=== PATIENT | male | born 1960 | race Caucasian/White ===

== ENCOUNTER 2017-10-04 09:15 | Emergency (ER) | payer OTHER ==
[2017-10-04] MEDS ORDERED: NORMAL SALINE 1000 ML 1,000 ML IV ONE (11:21)
[2017-10-04] MEDS ORDERED: MORPHINE SULFATE 10 MG/ML INJ IV ONE (11:21)
--- NOTE | 2017-10-04 11:21 | ER Document Report ---
ED Medical Screen (RME) - General Chief Complaint: Chest Pain Stated Complaint: CHEST PAIN Time Seen by Provider: 10/04/17 11:20 Notes: Patient has multiple medical problems including abdominal surgeries for hernia, hypertension, diabetes. Presents with left-sided chest pain he goes to his back. He also states he has an increased cough. TRAVEL OUTSIDE OF THE [place] IN LAST 30 DAYS: No - Related Data Allergies/Adverse Reactions: No Known Allergies Allergy (Verified 10/04/17 11:01) Past Medical History - Social History Frequency of alcohol use: None Drug Abuse: None - Past Medical History Cardiac Medical History: Reports: Hx Hypertension Endocrine Medical History: Reports: Hx Diabetes Mellitus Type 2 Renal/ Medical History: Denies: Hx Peritoneal Dialysis. Comment Only: Hx End Stage Renal Disease - CKD GI Medical History: Reports: Hx Hiatal Hernia, Hx Ulcer - diabetic Past Surgical History: Reports: Hx Orthopedic Surgery - right toe Physical Exam - Vital signs Vitals: Temp Pulse Resp BP Pulse Ox 97.8 F 98 17 133/61 H 100 10/04/17 09:30 10/04/17 09:30 10/04/17 09:30 10/04/17 09:30 10/04/17 09:30 Course - Vital Signs Vital signs: Temp Pulse Resp BP Pulse Ox 97.8 F 98 17 133/61 H 100 10/04/17 09:30 10/04/17 09:30 10/04/17 09:30 10/04/17 09:30 10/04/17 09:30
[2017-10-04 11:52] LABS: APPEARANCE,URINE CLEAR; BILIRUBIN,URINE NEGATIVE (NEGATIVE); COLOR,URINE YELLOW; GLUCOSE, URINE >=500 mg/dL (NEGATIVE); KETONES,URINE NEGATIVE (NEGATIVE); LEUKOCYTE ESTERASE,URINE NEGATIVE (NEGATIVE); NITRITE,URINE NEGATIVE (NEGATIVE); PROTEIN,URINE NEGATIVE (NEGATIVE); UROBILINOGEN,URINE NEGATIVE mg/dL (<2.0)
--- NOTE | 2017-10-04 12:12 | RADIOLOGY REPORT (SQ) ---
EXAM DESCRIPTION: CHEST PA/LAT COMPLETED DATE/TIME: 10/04/2017 12:02 pm REASON FOR STUDY: pain COMPARISON: None. EXAM PARAMETERS: NUMBER OF VIEWS: two views TECHNIQUE: Digital Frontal and Lateral radiographic views of the chest acquired. RADIATION DOSE: NA LIMITATIONS: none FINDINGS: LUNGS AND PLEURA: No opacities, masses or pneumothorax. No pleural effusion. MEDIASTINUM AND HILAR STRUCTURES: No masses or contour abnormalities. HEART AND VASCULAR STRUCTURES: Heart normal size. No evidence for failure. BONES: No acute findings. HARDWARE: None in the chest. OTHER: No other significant finding. IMPRESSION: NO SIGNIFICANT RADIOGRAPHIC FINDING IN THE CHEST. TECHNICAL DOCUMENTATION: JOB ID: [id number] [employer]- All Rights Reserved
[2017-10-04 12:51] LABS: ABSOLUTE EOSINOPHILS # (AUTO) 0.1 10^3/uL (0.0-0.6); ABSOLUTE LYMPHOCYTES (AUTO) 1.6 10^3/uL (0.5-4.7); ABSOLUTE MONOCYTES (AUTO) 0.5 10^3/uL (0.1-1.4); ABSOLUTE NEUT (AUTO) 4.6 10^3/uL (1.7-8.2); BASOPHILS % (AUTO) 0.3 % (0-2); EOSINOPHILS % (AUTO) 0.9 % (0-6); HEMATOCRIT 37.3 % (37.9-51.0); HEMOGLOBIN 12.6 g/dL (13.5-17.0); LYMPHOCYTES % (AUTO) 23.5 % (13-45); MEAN CORPUSCULAR HEMOGLOBIN 28.7 pg (27.0-33.4); MEAN CORPUSCULAR HGB CONC 33.9 g/dL (32.0-36.0); MEAN CORPUSCULAR VOLUME 85 fl (80-97); MONOCYTES % (AUTO) 6.9 % (3-13); PLATELET COUNT 200 10^3/uL (150-450); RED CELL DISTRIBUTION WIDTH 13.6 % (11.5-14.0); SEGMENTED NEUTROPHILS % (AUTO) 68.4 % (42-78); TOTAL CELLS COUNTED % (AUTO) 100 %; WHITE BLOOD COUNT 6.7 10^3/uL (4.0-10.5)
[2017-10-04 13:14] LABS: ALANINE AMINOTRANSFERASE 34 U/L (21-72); ALBUMIN 4.7 g/dL (3.5-5.0); ALKALINE PHOSPHATASE 76 U/L (38-126); ANION GAP 11 (5-19); ASPARTATE AMINO TRANSFERASE 17 U/L (17-59); BILIRUBIN,DIRECT 0.3 mg/dL (0.0-0.4); BILIRUBIN,TOTAL 0.5 mg/dL (0.2-1.3); BLOOD UREA NITROGEN 25 mg/dL (7-20); CALCIUM 10.3 mg/dL (8.4-10.2); CARBON DIOXIDE 26 mmol/L (22-30); CHLORIDE 101 mmol/L (98-107); GLUCOSE 255 mg/dL (75-110); POTASSIUM 4.9 mmol/L (3.6-5.0); SODIUM 137.7 mmol/L (137-145); TOTAL PROTEIN 7.8 g/dL (6.3-8.2)
--- NOTE | 2017-10-04 14:16 | ER Document Report ---
ED General - General Mode of Arrival: Ambulatory Information source: Patient TRAVEL OUTSIDE OF THE [place] IN LAST 30 DAYS: No <CHARLES MENDOZA - Last Filed: 10/10/17 20:37> <KIESHA ZAMORA - Last Filed: 10/10/17 20:47> - General Chief Complaint: Chest Pain Stated Complaint: CHEST PAIN Time Seen by Provider: 10/04/17 11:20 Notes: Patient is a 57 year old male with a history of hypertension and diabetes presents to the emergency department complaining of left sided chest pain and a non-productive cough onset 2 weeks ago. Patient describes the pain as burning on the left side of his chest that goes into his back. Patient states that he has taken a copious amount of [place] in attempt to soothe is cough but it did not help . (CHARLES MENDOZA) - Related Data Allergies/Adverse Reactions: No Known Allergies Allergy (Verified 10/04/17 11:01) Past Medical History - General Information source: Patient - Social History Smoking Status: Current Every Day Smoker Frequency of alcohol use: None Drug Abuse: None Family History: Reviewed & Not Pertinent Patient has suicidal ideation: No Patient has homicidal ideation: No - Past Medical History Cardiac Medical History: Reports: Hx Hypertension Endocrine Medical History: Reports: Hx Diabetes Mellitus Type 2 Renal/ Medical History: Comment Only: Hx End Stage Renal Disease - CKD GI Medical History: Reports: Hx Hiatal Hernia, Hx Ulcer - diabetic Past Surgical History: Reports: Hx Orthopedic Surgery - right toe <CHARLES MENDOZA - Last Filed: 10/10/17 20:37> Review of Systems - Review of Systems Constitutional: No symptoms reported EENT: No symptoms reported Cardiovascular: See HPI, Chest pain Respiratory: See HPI, Cough Gastrointestinal: No symptoms reported Genitourinary: No symptoms reported Male Genitourinary: No symptoms reported Musculoskeletal: No symptoms reported Skin: No symptoms reported Hematologic/Lymphatic: No symptoms reported Neurological/Psychological: No symptoms reported -: Yes All other systems reviewed and negative <CHARLES MENDOZA - Last Filed: 10/10/17 20:37> Physical Exam <CHARLES MENDOZA - Last Filed: 10/10/17 20:37> <KIESHA ZAMORA - Last Filed: 10/10/17 20:47> - Vital signs Vitals: Temp Pulse Resp BP Pulse Ox 97.8 F 98 17 133/61 H 100 10/04/17 09:30 10/04/17 09:30 10/04/17 09:30 10/04/17 09:30 10/04/17 09:30 - Notes Notes: GENERAL: Alert, interacts well. No acute distress. HEAD: Normocephalic, atraumatic. EYES: Pupils equal, round, and reactive to light. Extraocular movements intact. ENT: Oral mucosa moist, tongue midline. NECK: Full range of motion. Supple. Trachea midline. LUNGS: Reproducible pain on the left side of chest. Clear to auscultation bilaterally, no wheezes, rales, or rhonchi. No respiratory distress. HEART: Regular rate and rhythm. No murmurs, gallops, or rubs. ABDOMEN: Soft, non-tender. Non-distended. Bowel sounds present in all 4 quadrants. EXTREMITIES: Moves all 4 extremities spontaneously. NEUROLOGICAL: Alert and oriented x3. Normal speech. PSYCH: Normal affect, normal mood. SKIN: Warm, dry, normal turgor. No rashes or lesions noted. (CHARLES MENDOZA) Course - Laboratory Result Diagrams: 10/04/17 12:35 10/04/17 12:35 - Diagnostic Test Radiology reviewed: Image reviewed - mild peribronchial cuffing - EKG Interpretation by Ia EKG shows normal: Sinus rhythm Rate: Normal Rhythm: NSR <CHARLES MENDOZA - Last Filed: 10/10/17 20:37> - Laboratory Result Diagrams: 10/04/17 12:35 10/04/17 12:35 <KIESHA ZAMORA - Last Filed: 10/10/17 20:47> - Re-evaluation Re-evalutation: 10/04/17 15:02 Patient well-appearing with labs within normal limits are nonsignificant with chest x-ray showing mild peribronchial cuffing with normal troponin and no concerning findings on EKG. Patient has had cough is nonproductive and tickling in throat for over 2 weeks. Will treat patient for bronchitis with 5 day steroid pack cough syrup. Patient is diabetic advised to monitor his blood sugars during this time. Advised to follow[facility] with [facility] if symptoms do not improving within the next 3-4 days. Of note, patient's chest pain is reproducible with palpation as well as coughing and has been going on for over 2 weeks with normal troponins do not feel any further workup is necessary at this time regarding cardiology workup Did express if symptoms change or worsen that he needs follow-up. (KIESHA ZAMORA) - Vital Signs Vital signs: Temp Pulse Resp BP Pulse Ox 97.4 F 98 13 135/78 H 96 10/04/17 15:20 10/04/17 09:30 10/04/17 15:10 10/04/17 15:10 10/04/17 15:10 - Laboratory Laboratory results interpreted by me: 10/04/17 10/04/17 10/04/17 11:30 12:35 12:35 Hgb 12.6 L Hct 37.3 L BUN 25 H Creatinine 1.54 H Est GFR ( Amer) 57 L Est GFR (Non-Af Amer) 47 L Glucose 255 H Calcium 10.3 H Urine Glucose (UA) >=500 H Discharge <CHARLES MENDOZA - Last Filed: 10/10/17 20:37> <KIESHA ZAMORA - Last Filed: 10/10/17 20:47> - Discharge Clinical Impression: Bronchitis Condition: Good Disposition: HOME, SELF-CARE Additional Instructions: Please follow-up with your [facility] primary care physician in the next 3-4 days if symptoms are not improving for reevaluation Prescriptions: Guaifenesin/Dextromethorphan [Cough Syrup] 118 ml PO QHS #1 bottle Prednisone [Deltasone 20 mg Tablet] 2 tab PO DAILY 5 Days #10 tablet Scribe Attestation: 10/10/17 20:47 I personally performed the services described documentation, reviewed and edited the documentation which was dictated to describe my presence, and it accurately records my words and actions. (KIESHA ZAMORA) Scribe Documentation - Scribe Written by Bhavana:: Bhavana Beebe, 10/04/2017 14:57 acting as scribe for :: Maco <CHARLES MENDOZA - Last Filed: 10/10/17 20:37>
[2017-10-04 15:12] VITALS: BP 135/78
--- NOTE | 2017-10-05 11:57 | EKG REPORT ---
SEVERITY:- NORMAL ECG - SINUS RHYTHM : Confirmed by: Antonio Rivas 05-Oct-2017 11:56:41
== END 2017-10-04 15:21 | disposition home or self-care (01) ==
LOC: ER 09:15
DX: J40 Bronchitis, not specified as acute or chronic (principal); R07.9 Chest pain, unspecified; R05 Cough; I10 Essential (primary) hypertension; E11.9 Type 2 diabetes mellitus without complications
CPT/HCPCS: 93005; 99285; 96361; 96374; 36415; 85025; 80053; 81001; 84484; 71046; 93010; J2270; J7030

== ENCOUNTER 2018-03-20 06:48 | Emergency (ER) | payer OTHER ==
--- NOTE | 2018-03-20 06:51 | ER Document Report ---
ED General - General Stated Complaint: POSSIBLE STROKE Time Seen by Provider: 03/20/18 06:49 Mode of Arrival: Medic Information source: Patient, Emergency Med Personnel Cannot obtain history due to: Other - Patient is aphasic Notes: 58-year-old male unclear medical history due to aphasia presents by EMS emergency traffic, patient is unable to explain his symptoms to me by EMS notes that he has had right arm paresthesia and weakness difficulty with speech. Patient when asked if he knows where he is nods yes when asked if he can name the place just points around the rooms he was able to say a few words to me but were incoherent TRAVEL OUTSIDE OF THE [place] IN LAST 30 DAYS: No - HPI Onset: Other - Unclear time of onset Onset/Duration: Sudden Quality of pain: No pain Severity: Severe Pain Level: Denies Associated symptoms: Other - Aphasia Exacerbated by: Denies Relieved by: Denies Similar symptoms previously: No - Unclear Recently seen / treated by doctor: No - Related Data Allergies/Adverse Reactions: No Known Allergies Allergy (Verified 10/04/17 11:01) Past Medical History - Social History Smoking Status: Current Every Day Smoker Cigarette use (# per day): Yes Chew tobacco use (# tins/day): No Smoking Education Provided: No Family History: Reviewed & Not Pertinent - Past Medical History Cardiac Medical History: Reports: Hx Hypertension Endocrine Medical History: Reports: Hx Diabetes Mellitus Type 2 Renal/ Medical History: Denies: Hx Peritoneal Dialysis. Comment Only: Hx End Stage Renal Disease - CKD GI Medical History: Reports: Hx Hiatal Hernia, Hx Ulcer - diabetic Past Surgical History: Reports: Hx Orthopedic Surgery - right toe Review of Systems - Review of Systems Notes: REVIEW OF SYSTEMS: Difficult to ascertain due to the inability to speak CONSTITUTIONAL : Denies fever, chills, or sweats. Denies recent illness. EENT: Denies eye, ear, throat, or mouth pain or symptoms. Denies nasal or sinus congestion or discharge. Denies throat, tongue, or mouth swelling or difficulty swallowing. CARDIOVASCULAR: Denies chest pain. Denies palpitations or racing or irregular heart beat. Denies ankle edema. RESPIRATORY: Denies cough, cold, or chest congestion. Denies shortness of breath, difficulty breathing, or wheezing. GASTROINTESTINAL: Denies abdominal pain or distention. Denies nausea, vomiting , or diarrhea. Denies blood in vomitus, stools, or per rectum. Denies black, tarry stools. Denies constipation. GENITOURINARY: Denies difficulty urinating, painful urination, burning, frequency, blood in urine, or discharge. MUSCULOSKELETAL: Denies back or neck pain or stiffness. Denies joint pain or swelling. SKIN: Denies rash, lesions or sores. HEMATOLOGIC : Denies easy bruising or bleeding. LYMPHATIC: Denies swollen, enlarged glands. NEUROLOGICAL: Admits difficulty with speech weakness PSYCHIATRIC: Denies anxiety or stress. Denies depression, suicidal ideation, or homicidal ideation. ALL OTHER SYSTEMS REVIEWED AND NEGATIVE. Dictation was performed using [employer] voice recognition software PHYSICAL EXAMINATION: GENERAL: Well-appearing, well-nourished and in no acute distress. Smells of cigarettes HEAD: Atraumatic, normocephalic. EYES: Pupils equal round and reactive to light, extraocular movements intact, sclera anicteric, conjunctiva are normal. ENT: Nares patent, oropharynx clear without exudates. Moist mucous membranes. NECK: Normal range of motion, supple without lymphadenopathy LUNGS: Breath sounds clear to auscultation bilaterally and equal. No wheezes rales or rhonchi. HEART: Regular rate and rhythm without murmurs ABDOMEN: Soft, nontender, nondistended abdomen. No guarding, no rebound. No masses appreciated. Musculoskeletal: Normal range of motion, no pitting or edema. No cyanosis. NEUROLOGICAL: Please see NIH PSYCH: Normal mood, normal affect. SKIN: Warm, Dry, normal turgor, no rashes or lesions noted. Physical Exam - Vital signs Vitals: Pulse Ox 100 03/20/18 07:00 Course - Re-evaluation Re-evalutation: 03/20/18 06:50 I met the patient in the ambulance bay, he is having aphasia it is unclear last known well, EMS states that he awoke a friend approximately 45 minutes ago stating that he was having trouble. Patient may be a candidate for thrombolytics depending on risk factors and time of onset which unfortunately is very difficult to ascertain, there is high risk of giving thrombolytics if the time of onset was last night 03/20/18 06:55 03/20/18 07:32 I was notified by radiologist that there is a large MCA infarct however there is the possibility of a subarachnoid bleed as well radiologist having difficulty viewing the images 03/20/18 07:51 Radiology was able to clear up image and resending it 03/20/18 07:58 Second radiologist is now stating that the image has no acute abnormalities no bleeds no ischemic stroke I asked him specifically about the MCA and he states it is normal 03/20/18 08:04 I walked over to the radiologist Dr. Everett for a third opinion, she agrees that there is a subacute infarct which would not be appropriate for thrombolytics given the time of onset 03/20/18 08:06 [facility] paged for assistance 03/20/18 08:13 Dr Turner agrees not to tpa due to uncertainty of time of onset 03/20/18 08:15 Dr bauman accepts ed transfer 03/20/18 09:18 Helicopter has been here patient has been watched continuously blood pressure did get elevated and EMS who is aware they will call [facility] for more instructions - Vital Signs Vital signs: Temp Pulse Resp BP Pulse Ox 98.3 F 110 H 22 H 189/107 H 99 03/20/18 08:54 03/20/18 07:16 03/20/18 08:46 03/20/18 08:46 03/20/18 08:46 - Laboratory Result Diagrams: 03/20/18 06:50 03/20/18 06:50 Laboratory results interpreted by me: 03/20/18 03/20/18 03/20/18 06:50 06:50 07:03 RBC 4.28 L Hgb 13.0 L Creatinine 1.47 H Est GFR (Non-Af Amer) 49 L Glucose 184 H POC Glucose 173 H Creatine Kinase 380 H Discharge - Discharge Clinical Impression: CVA (cerebral vascular accident) Qualifiers: CVA mechanism: embolism Precerebral and cerebral artery: middle cerebral artery Laterality of affected vessel: left Qualified Code(s): I63.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
--- NOTE | 2018-03-20 07:02 | ER Document Report ---
ED NIH Stroke Scale - NIH Stroke Scale When completed:: Before Alteplase *: 1. NIH scale should be completed with appropriate accompanying assessment tools. *: 2. The NIH should reflect what the patient is capable of doing and should not be coached by the clinician. 1a. Level of Consciousness: 0=Alert;keenly responsive -: 1=Drowsy -: 2=Obtunded -: 3=Coma/unresponsive or reflex to noxious stimuli. 1a. Responses: 0 1b. Orientation Questions: a. What month is it? -: b. How old are you? -: 0=Answers both questions correctly. -: 1=Answers one question correctly or patient is intubated or has orotracheal trauma. -: 2=Answers neither question correctly. 1b. Responses: 2 1c. Response to commands: a. Open and close eyes? -: b. Automatic Packer Operator and release hand? -: Credit is given despite weakness. Demonstration of task is permitted. Substitute command if hands cannot be used. -: 0=Performs both tasks correctly -: 1=Performs one task correctly -: 2=Performs neither task correctly 1c. Responses: 2 2. Gaze: Establish eye contact and instruct patient to "Follow my finger" -: 0=Normal -: 1=Partial gaze palsy. Gaze is abnormal in one or both eyes, but where forced deviation or total gaze paresis is not present. -: 2=Forced deviation or total gaze paresis. 2. Responses: 0 3. Visual Benjamin: Sees fingers in all four quadrants. -: 0=No visual loss. -: 1=Partial hemianopsia. -: 2=Complete hemianopsia. -: 3=Bilateral hemianopsia (including Cortical blindness) 3. Responses: 0 4. Facial Movement: Instruct patient to: -: a. Show me your teeth -: b. Raise your eyebrows -: c. Close your eyes -: d. Smile -: 0=Normal symmetrical movement -: 1=Minor paralysis (flattened nasolabial fold, asymmetry on smiling). -: 2=Partial paralysis (total or near total paralysis of lower face). -: 3=Complete paralysis of upper and lower face 4. Responses: 3 5. Motor functions (left arm): Alternate sides and extend each arm with palms down (90 degrees if sitting or 45 degrees for supine). -: 0=No drift;limb holds for full 10 seconds. -: 1=Drift; limb holds but drifts down before full 10 seconds, but does not hit bed. -: 2=Some effort against gravity; limb cannot get to or maintain position. -: 3=No effort against gravity; limb falls. -: 4=No movement. -: UN=Amputation, joint fusion, explain in comments. 5. Responses (left arm): 1 5. Motor Functions (right arm): Alternate sides and extend each arm with palms down (90 degrees if sitting or 45 degrees for supine). -: 0=No drift;limb holds for full 10 seconds. -: 1=Drift; limb holds but drifts down before full 10 seconds, but does not hit bed. -: 2=Some effort against gravity; limb cannot get to or maintain position. -: 3=No effort against gravity; limb falls. -: 4=No movement. -: UN=Amputation, joint fusion, explain in comments. 5. Responses (right arm): 1 6. Motor Functions (left leg): With patient lying supine, alternate sides and extend each leg (30 degrees always while supine). -: 0=No drift, leg holds position for full 5 seconds -: 1=Drift; leg falls before full 5 seconds but does not hit bed. -: 2=Some effort against gravity, leg falls to bed but some effort against gravity. -: 3=No effort against gravity, leg falls to bed immediately. -: 4=No movement. -: UN=Amputation, joint fusion; explain in comments. 6. Responses (left leg): 0 6. Motor Functions (right leg): With patient lying supine, alternate sides and extend each leg (30 degrees always while supine). -: 0=No drift, leg holds position for full 5 seconds -: 1=Drift; leg falls before full 5 seconds but does not hit bed. -: 2=Some effort against gravity, leg falls to bed but some effort against gravity. -: 3=No effort against gravity, leg falls to bed immediately. -: 4=No movement. -: UN=Amputation, joint fusion; explain in comments. 6. Responses (right leg): 0 7. Limb Ataxia: With eyes open instruct patient to: -: a. "Touch your finger to your nose". -: b. "Touch your heel to your cherry" -: 0=Absent -: 1=Present in one limb. -: 2=Present in two limbs. -: UN=Amputation or joint fusion; explain in comments. 7. Responses: 1 8. Sensory: Test sensation using pinprick or noxious stimuli. Test as many body parts as possible. -: 0=Normal;no sensory loss -: 1=Mile to moderate sensory loss (patient feels pin prick but is less sharp on affected side). -: 2=Severe or total sensory loss. 8. Responses: 1 9. Best Language: Instruct patient to: -: a. "Describe what you see in this picture." -: b. "Name the items in this picture." -: c. "Read these sentences." -: 0=No aphasia, normal -: 1=Mild to moderate aphasia. -: 2=Severe aphasia -: 3=Mute, global aphasia, no usable speech or auditory comprehension. 9. Responses: 3 10. Articulation, Dysarthia: Instruct patient to: -: "Read these words" or "Repeat these words" -: 0=Normal -: 1=Mild to moderate; patient may slur some words but can be understood without difficulty. -: 2=Severe; patients speech so slurred as to be unintelligible in the absence of dysphasia. -: UN=Intubated or other physical barrier, explain in comments. 10. Responses: 0 11. Extinction or inattention: 0=No abnormality -: 1= Visual, tactile, auditory, spatial, or personal inattention or extinction to bilateral simulation in one or the sensory modalities. -: 2=Profound lesly-inattention or lesly-inattention to more than one modality; does not recognize own hand. 11. Responses: 0 Total Score: 14
[2018-03-20 07:22] LABS: ABSOLUTE LYMPHOCYTES (AUTO) 0.9 10^3/uL (0.5-4.7); ABSOLUTE MONOCYTES (AUTO) 0.6 10^3/uL (0.1-1.4); ABSOLUTE NEUT (AUTO) 4.6 10^3/uL (1.7-8.2); BASOPHILS % (AUTO) 0.3 % (0-2); EOSINOPHILS % (AUTO) 0.4 % (0-6); HEMATOCRIT 38.3 % (37.9-51.0); LYMPHOCYTES % (AUTO) 15.2 % (13-45); MEAN CORPUSCULAR HEMOGLOBIN 30.4 pg (27.0-33.4); MEAN CORPUSCULAR VOLUME 90 fl (80-97); MONOCYTES % (AUTO) 9.2 % (3-13); PLATELET COUNT 195 10^3/uL (150-450); RED BLOOD COUNT 4.28 10^6/uL (4.35-5.55); RED CELL DISTRIBUTION WIDTH 13.8 % (11.5-14.0); SEGMENTED NEUTROPHILS % (AUTO) 74.9 % (42-78); TOTAL CELLS COUNTED % (AUTO) 100 %; WHITE BLOOD COUNT 6.1 10^3/uL (4.0-10.5)
[2018-03-20 07:25] LABS: INTERNATIONAL RATION (INR) 0.89; PARTIAL THROMBOPLASTIN TIME 26.1 SEC (23.5-35.8); PROTHROMBIN TIME 12.5 SEC (11.4-15.4)
--- NOTE | 2018-03-20 07:42 | RADIOLOGY REPORT (SQ) ---
EXAM DESCRIPTION: CT HEAD WITHOUT IV CONTRAST COMPLETED DATE/TME: 03/20/2018 00:00 CLINICAL HISTORY: STROKE PROTOCOL COMPARISON: None available TECHNIQUE: Axial CT of the head obtained from the skull apex to the skull base without contrast. FINDINGS: Linear area of hyperdensity in the parietal lobe best seen on image #14, series #2 may represent a small amount of subarachnoid hemorrhage. Wedge-shaped area of hypodensity and loss of an-white matter differentiation. Involving the left parietal lobe compatible with subacute MCA distribution infarction. This hypodensity involves greater than one third the left MCA distribution. No significant mass effect at this time. The ventricular system and sulcal spaces are mildly enlarged compatible with mild cerebral atrophy. Scattered areas of hypodensity throughout the supratentorial white matter are nonspecific and may be related to chronic small vessel ischemic change. The visualized paranasal sinuses and the mastoids are clear. No skull fracture identified. Visualized orbits and globes are unremarkable. Atherosclerotic calcification of the intracranial internal carotid arteries. DLP:1028.70 mGy-cm IMPRESSION: 1. Findings compatible with likely acute/subacute left MCA distribution infarction involving the left parietal lobe. Involvement appears to be greater than one third of the left MCA distribution. 2. There is linear hyperdensity in a sulcal space in the left parietal lobe which could represent acute subarachnoid hemorrhage. Urgent finding reported to Dr. Jones at 03/20/2018 6:40 AM CDT This exam was performed according to our departmental dose-optimization program, which includes automated exposure control, adjustment of the mA and/or kV according to patient size and/or use of iterative reconstruction technique.
[2018-03-20 07:59] LABS: ALANINE AMINOTRANSFERASE 52 U/L (21-72); ALBUMIN 3.9 g/dL (3.5-5.0); ALKALINE PHOSPHATASE 71 U/L (38-126); ANION GAP 14 (5-19); ASPARTATE AMINO TRANSFERASE 26 U/L (17-59); BILIRUBIN,DIRECT 0.3 mg/dL (0.0-0.4); BILIRUBIN,TOTAL 0.3 mg/dL (0.2-1.3); BLOOD UREA NITROGEN 15 mg/dL (7-20); CALCIUM 9.5 mg/dL (8.4-10.2); CARBON DIOXIDE 23 mmol/L (22-30); CHLORIDE 104 mmol/L (98-107); CREATINE KINASE 380 U/L (55-170); GLUCOSE 184 mg/dL (75-110); POTASSIUM 4.4 mmol/L (3.6-5.0); SODIUM 141.3 mmol/L (137-145)
--- NOTE | 2018-03-20 08:02 | RADIOLOGY REPORT (SQ) ---
EXAM DESCRIPTION: XR CHEST 1 VIEW COMPLETED DATE/TME: 03/20/2018 00:00 CLINICAL HISTORY: STROKE PROTOCOL COMPARISON: 10/04/2017 FINDINGS: Single frontal view of the chest. The cardiomediastinal silhouette has normal size and contour. No consolidation, pneumothorax, or pleural effusion. No displaced rib fractures identified. Upper abdominal soft tissues are unremarkable. IMPRESSION: 1. No acute pulmonary process identified.
--- NOTE | 2018-03-20 08:07 | RADIOLOGY REPORT (SQ) ---
EXAM DESCRIPTION: CT HEAD WITHOUT COMPLETED DATE/TIME: 03/20/2018 7:49 am REASON FOR STUDY: STROKE PROTOCOL COMPARISON: None. TECHNIQUE: Axial images acquired through the brain without intravenous contrast. Images reviewed wi th bone, brain and subdural windows. Images stored on PACS. All CT scanners at this facility use dose modulation, iterative reconstruction, and/or weight based d osing when appropriate to reduce radiation dose to as low as reasonably achievable (ALARA). [facility]: Dose Right [facility]: CareDose [facility]: Dose Right [facility]: Teradose 4D [facility]: Cleanify RADIATION DOSE: mGy. LIMITATIONS: None. FINDINGS: VENTRICLES: Normal size and contour. CEREBRUM: No masses. No hemorrhage. No midline shift. No clear-cut areas of infarction. Normal gra y/white matter differentiation. Minimal faint hypodensity noted left parietal region. CEREBELLUM: No masses. No hemorrhage. No alteration of density. No evidence for acute infarction. EXTRAAXIAL SPACES: No fluid collections. No masses. ORBITS AND GLOBE: No intra- or extraconal masses. Normal contour of globe without masses. CALVARIUM: No fracture. PARANASAL SINUSES: No fluid or mucosal thickening. SOFT TISSUES: No mass or hematoma. OTHER: No other significant finding. IMPRESSION: Nothing acute as noted above. No acute hemorrhage. COMMENT: Report called to at the time of study. Quality ID # [id number]: Final reports with documentation of one or more dose reduction techniques (e.g., Au tomated exposure control, adjustment of the mA and/or kV according to patient size, use of iterative reconstruction technique) TECHNICAL DOCUMENTATION: JOB ID: [id number] [employer]- All Rights Reserved Reading location - IP/workstation name: [email or web address]
[2018-03-20 08:10] LABS: CREATINE KINASE MB 1.63 ng/mL (<4.55); TROPONIN I < 0.012 ng/mL
[2018-03-20 08:53] VITALS: BP 189/107
--- NOTE | 2018-03-20 09:59 | EKG REPORT ---
SEVERITY:- OTHERWISE NORMAL ECG - SINUS TACHYCARDIA : Confirmed by: Sallie Murillo MD 20-Mar-2018 09:58:44
== END 2018-03-20 09:03 | disposition short-term general hospital (02) ==
LOC: ER 06:48
DX: I63.411 Cerebral infarction due to embolism of right middle cerebral artery (principal); R47.01 Aphasia; G83.21 Monoplegia of upper limb affecting right dominant side; R20.2 Paresthesia of skin; I10 Essential (primary) hypertension; E11.9 Type 2 diabetes mellitus without complications; F17.210 Nicotine dependence, cigarettes, uncomplicated
CPT/HCPCS: 36415; 70450; 71045; 80053; 82550; 82553; 82962; 84484; 85025; 85610; 85730; 93005; 93010; 99285

== ENCOUNTER 2019-03-19 08:05 | Day surgery (SDC) | payer OTHER ==
[~2019-03-19 08:05] MED LIST: KETOROLAC TROMETHAMINE 0.45% 4 DROP/0.4 ML DROPERETTE OD PRN
[2019-03-19] MEDS ORDERED: ONDANSETRON HCL INJ/PF 4 MG/2 ML SDV ONE (08:25)
[2019-03-19] MEDS ORDERED: FENTANYL CITRATE INJ/PF 100 MCG/2 ML AMPUL ONE (08:26)
[2019-03-19] MEDS ORDERED: MIDAZOLAM 2 MG/2 ML INJ ONE (08:26)
[2019-03-19] MEDS: CYCLOPENTOLATE 0.2%/PHENYLEPHRINE 1% OPH SOLN 2 ML OD PRN ×3 (08:39→09:21)
[2019-03-19] MEDS: TROPICAMIDE 1% OPH SOLN 3 ML OD PRN ×3 (08:39→09:21)
[2019-03-19] MEDS: BESIFLOXACIN HCL 0.6% OPH SUSP 5 ML BOTTLE OD PRN ×4 (08:40→10:01)
[2019-03-19] MEDS: TETRACAINE HCL 0.5% OPH SOLN 0.6 ML DROPERETTE OD PRN ×4 (08:41→09:32)
[2019-03-19] MEDS: LIDOCAINE 4% INJ/PF (40 MG/ML) 5 ML AMPUL OD PRN ×2 (09:35)
[2019-03-19] MEDS: BUPIVACAINE HCL 0.75% INJ/PF (7.5 MG/1 ML) 10 ML SDV OD PRN ×2 (09:35)
[2019-03-19] MEDS: CHONDR SU A NA/HYALUR INTRAOC KIT (SURGICARE) ONE ×2 (09:48)
[2019-03-19] MEDS: LIDOCAINE 1% INJ-PF (10 MG/ML) 30 ML SDV ONE ×2 (09:48)
[2019-03-19] MEDS: EPINEPHRINE INJ/PF 1 MG/1 ML AMPULE ONE ×2 (09:48)
[2019-03-19] MEDS: DORZOLAMIDE HCL 2%/TIMOLOL MALEAT 0.5% OPH SOLN 10 ML OD PRN ×2 (10:01)
--- NOTE | 2019-03-19 10:40 | [facility] OPERATIVE REPORT E ---
[facility] Operative Report NAME: JOSEPHINE MILLS AGE: 59Y DATE OF SURGERY: 03/19/2019 ROOM: PREOPERATIVE DIAGNOSIS: Cataract, right eye. POSTOPERATIVE DIAGNOSIS: Cataract, right eye. PROCEDURE PERFORMED: Phacoemulsification with posterior chamber intraocular lens, right eye. SURGEON: PUMA ROBLERO M.D. ANESTHESIA: Topical with MAC. INDICATIONS FOR SURGERY: Difficulty reading words on TV. PROCEDURE: The patient was brought to the operating room and placed on the operative table. Following tetracaine drops, topical anesthesia was administered. This consisted of instrument wipe pledgets soaked in a solution of 4% Xylocaine mixed with 0.75% Marcaine in a 1:2 ratio. A 2 x 1 cm pledget was placed in the superior fornix. A 1 x 1 cm pledget was placed in the inferior fornix. The eye was patched shut for 5 minutes. The patch was removed. The eye was sterilely prepped and draped in the usual manner. Lid speculum was placed in the eye. The pledgets were removed and 4-0 black silk sutures were placed around the superior and the inferior rectus muscles to be used as traction. A conjunctival peritomy was made at the 10 o'clock position. Hemostasis was obtained with bipolar cautery. A posterior limbal groove was created using a crescent knife and dissected anteriorly towards the cornea. A sharp point blade was used to create a paracentesis site at the 2 o'clock position. A 2.4 mm keratome was used to enter the anterior chamber through the groove. Viscoelastic was injected into the anterior chamber. An anterior capsulotomy was performed using Utrata forceps in a capsulorrhexis fashion. Hydrodissection and hydrodelineation were performed. Phacoemulsification was performed in nexfwh-ylc-efanbmo technique. Total phaco time was 11.47 CDE. Following removal of the cataract, a small anterior capsular tear was noted at the 5 o'clock position. There was no extension of the tear and no evidence of vitreous. The I/A unit was used to remove residual cortex. Viscoelastic was injected into the capsular bag. Intraocular lens model SN60WF, 21.0 diopters, serial number [id number], was placed in the capsular bag. The lens haptics were centered away from the anterior capsular tear. The I/A unit was used to remove residual viscoelastic. The wound was seen to be watertight under high and low pressure, and no sutures were placed. The intraocular lens was well centered. The pressure was adjusted in the eye to normal pressure. The 4-0 black silk sutures and lid speculum were removed. The eye was shielded after Besivance drops were placed. The patient tolerated the procedure well and was sent to the recovery room in good condition. A drop of Cosopt was placed in the eye at the end of the surgery. DICTATING PHYSICIAN: PUMA ROBLERO M.D. [id number] PHY#: [id number] ID: [id number] JOB#: [id number] ACCT: [id number] cc:PUMA ROBLERO M.D. > MTDD
--- NOTE | 2019-03-19 10:40 | [facility] DISCHARGE SUMMARY E ---
[facility] Discharge Summary NAME: JOSEPHINE MILLS AGE: 59Y ADMITTED: 03/19/2019 DISCHARGED: 03/19/2019 FINAL DIAGNOSIS: Cataract, right eye. HOSPITAL COURSE: The patient is a 59-year-old gentleman who underwent uneventful cataract extraction with intraocular lens implant, right eye, on 03/19/2019. He will be discharged to home. He was instructed to resume preoperative medications; to take Tylenol as needed for discomfort; to keep his eye shielded; to use Pred Forte, ketorolac, and Vigamox at 3 p.m. and 8 p.m.; and to follow up in my office in 1 day. DICTATING PHYSICIAN: PUMA ROBLERO M.D. [id number] PHY#: [id number] ID: [id number] JOB#: [id number] ACCT: [id number] cc:PUMA ROBLERO M.D. >
== END 2019-03-19 10:42 | disposition home or self-care (01) ==
LOC: SC 08:05
PROVIDERS: ATTEND Ophthalmology
DX: H25.811 Combined forms of age-related cataract, right eye (principal); Z96.1 Presence of intraocular lens; I10 Essential (primary) hypertension; K21.9 Gastro-esophageal reflux disease without esophagitis; E11.9 Type 2 diabetes mellitus without complications; F17.210 Nicotine dependence, cigarettes, uncomplicated; I69.851 Hemiplegia and hemiparesis following other cerebrovascular disease affecting right dominant side; Z79.4 Long term (current) use of insulin
CPT/HCPCS: 66984; 82962; V2632; J2250; J3490 ×4; J0171; J2405; J3010

== ENCOUNTER → 2019-04-23 | Outpatient (CLI) | payer OTHER, MEDICAID ==
--- NOTE | 2019-04-23 11:47 | RADIOLOGY REPORT (SQ) ---
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 NUMBER OF VIEWS: Three views. TECHNIQUE: AP, lateral and oblique radiographic images acquired of the right foot. LIMITATIONS: None. FINDINGS: MINERALIZATION: Normal. BONES: No acute fracture or dislocation. No worrisome bone lesions. JOINTS: Degenerative changes in the interphalangeal joint of the great toe. Possibly related to prio r infection. SOFT TISSUES: No soft tissue swelling. No foreign body. OTHER: No other significant finding. IMPRESSION: No conventional radiographic of osteomyelitis. Unusual degenerative changes in the 1st interphalangeal joint which may related to old infectious or inflammatory process. TECHNICAL DOCUMENTATION: JOB ID: [id number] [employer]- All Rights Reserved Reading location - IP/workstation name: [email or web address]
== END ==
LOC: RAD 11:08
PROVIDERS: ATTEND Podiatrist Foot & Ankle Surgery
DX: M86.371 Chronic multifocal osteomyelitis, right ankle and foot (principal)

== ENCOUNTER → 2019-05-06 | Outpatient (CLI) | payer MEDICAID ==
[2019-05-06 13:31] LABS: ABSOLUTE EOSINOPHILS # (AUTO) 0.1 10^3/uL (0.0-0.6); ABSOLUTE LYMPHOCYTES (AUTO) 1.4 10^3/uL (0.5-4.7); ABSOLUTE MONOCYTES (AUTO) 0.4 10^3/uL (0.1-1.4); ABSOLUTE NEUT (AUTO) 3.4 10^3/uL (1.7-8.2); BASOPHILS % (AUTO) 0.4 % (0-2); EOSINOPHILS % (AUTO) 1.6 % (0-6); HEMATOCRIT 37.2 % (37.9-51.0); HEMOGLOBIN 12.7 g/dL (13.5-17.0); LYMPHOCYTES % (AUTO) 26.4 % (13-45); MEAN CORPUSCULAR HEMOGLOBIN 28.9 pg (27.0-33.4); MEAN CORPUSCULAR HGB CONC 34.1 g/dL (32.0-36.0); MEAN CORPUSCULAR VOLUME 85 fl (80-97); MONOCYTES % (AUTO) 7.7 % (3-13); PLATELET COUNT 195 10^3/uL (150-450); RED CELL DISTRIBUTION WIDTH 13.9 % (11.5-14.0); SEGMENTED NEUTROPHILS % (AUTO) 63.9 % (42-78); TOTAL CELLS COUNTED % (AUTO) 100 %; WHITE BLOOD COUNT 5.4 10^3/uL (4.0-10.5)
[2019-05-06 13:54] LABS: ALBUMIN 4.2 g/dL (3.5-5.0); ALKALINE PHOSPHATASE 86 U/L (38-126); ANION GAP 9 (5-19); ASPARTATE AMINO TRANSFERASE 19 U/L (17-59); BILIRUBIN,DIRECT 0.3 mg/dL (0.0-0.4); BILIRUBIN,TOTAL 0.5 mg/dL (0.2-1.3); BLOOD UREA NITROGEN 27 mg/dL (7-20); CALCIUM 9.6 mg/dL (8.4-10.2); CARBON DIOXIDE 29 mmol/L (22-30); CHLORIDE 99 mmol/L (98-107); CHOLESTEROL 172.66 mg/dL (0-200); GLUCOSE 242 mg/dL (75-110); POTASSIUM 4.4 mmol/L (3.6-5.0); TOTAL PROTEIN 7.1 g/dL (6.3-8.2); TRIGLYCERIDES 176 mg/dL (<150)
[2019-05-06 14:05] LABS: DIRECT LDL 109 mg/dL (<100)
[2019-05-06 14:10] LABS: VLDL CHOLESTEROL 35.2 mg/dL (10-31)
[2019-05-07 13:37] LABS: CREATININE URINE 267.4 mg/dL (Not Estab.); MICROALBUMIN URINE 35.3 ug/mL (Not Estab.)
== END ==
LOC: OD 13:00
PROVIDERS: ATTEND Family Medicine Geriatric Medicine
DX: E11.21 Type 2 diabetes mellitus with diabetic nephropathy (principal); I10 Essential (primary) hypertension; E55.9 Vitamin D deficiency, unspecified; Z79.899 Other long term (current) drug therapy
CPT/HCPCS: 80053; 80061; 82043; 82306; 82570; 83036; 84443; 85025

== ENCOUNTER → 2019-05-29 | Outpatient (CLI) | payer MEDICAID ==
[2019-05-29 14:34] LABS: ABSOLUTE EOSINOPHILS # (AUTO) 0.1 10^3/uL (0.0-0.6); ABSOLUTE LYMPHOCYTES (AUTO) 1.2 10^3/uL (0.5-4.7); ABSOLUTE MONOCYTES (AUTO) 0.4 10^3/uL (0.1-1.4); ABSOLUTE NEUT (AUTO) 3.7 10^3/uL (1.7-8.2); BASOPHILS % (AUTO) 0.6 % (0-2); EOSINOPHILS % (AUTO) 1.6 % (0-6); HEMATOCRIT 37.1 % (37.9-51.0); HEMOGLOBIN 12.8 g/dL (13.5-17.0); LYMPHOCYTES % (AUTO) 22.1 % (13-45); MEAN CORPUSCULAR HEMOGLOBIN 29.2 pg (27.0-33.4); MEAN CORPUSCULAR HGB CONC 34.5 g/dL (32.0-36.0); MEAN CORPUSCULAR VOLUME 85 fl (80-97); MONOCYTES % (AUTO) 8.1 % (3-13); PLATELET COUNT 165 10^3/uL (150-450); RED BLOOD COUNT 4.38 10^6/uL (4.35-5.55); RED CELL DISTRIBUTION WIDTH 13.9 % (11.5-14.0); SEGMENTED NEUTROPHILS % (AUTO) 67.6 % (42-78); TOTAL CELLS COUNTED % (AUTO) 100 %; WHITE BLOOD COUNT 5.4 10^3/uL (4.0-10.5)
[2019-05-29 14:56] LABS: CHOLESTEROL 155.21 mg/dL (0-200); IRON(TIBC) 58.6 ug/dL (49-181); TRIGLYCERIDES 191 mg/dL (<150)
[2019-05-29 15:07] LABS: DIRECT LDL 84 mg/dL (<100)
[2019-05-29 15:36] LABS: VLDL CHOLESTEROL 38.2 mg/dL (10-31)
== END ==
LOC: LAB 13:52
PROVIDERS: ATTEND Family Medicine Geriatric Medicine
DX: D64.9 Anemia, unspecified (principal); E78.5 Hyperlipidemia, unspecified; Z79.899 Other long term (current) drug therapy
CPT/HCPCS: 36415; 80061; 82272; 82728; 83540; 83550; 84460; 84466; 85025

== ENCOUNTER → 2019-06-18 | Outpatient (CLI) | payer MEDICAID ==
--- NOTE | 2019-06-18 15:00 | NEURO WORKBENCH EEG REPORT ---
EEG Report Patient: Davonte Tillman ID: [id number] Referring Doctor: John De Jesus MD DOS: 06/18/2019 Medications: Unknown History This is a 59 year old right handed man with a history of hemiplegia following stroke in March,, dysarthria, hypertension, diabetes, pacemaker. This EEG was requested for disorientation. EEG Interpretation This EEG was recorded in the awake, drowsy, and sleep states. The awake EEG is characterized by a well-organized background with a well-developed and reactive posterior dominant rhythm of 8.5-9Hz. The remainder of the background consisted of a mix of mainly alpha and appeared symmetric. Mu was noted on the right. There were theta waves in the right temporal region consistent with rhythmic midtemporal discharges (a benign finding). Drowsiness is characterized by slowing of the background rhythms. Vertex waves and sleep spindles were seen in the midline head regions, slightly more prominent on the right side. Photic stimulation resulted in a fairly good driving response, without significant asymmetry. There were no epileptiform abnormalities. The EKG showed periods of an irregular rhythm. EEG Classification Subtle asymmetry, sleep architecture on right EKG - arrythmia EEG Impression This EEG is mildly abnormal with subtle asymmetry suggesting structural lesion on left. Clinical and neuroimaging correlation is required. The EKG shows an intermittent arrhythmia. INTERPRETING NEUROLOGIST: Soledad Mitchell MD, [facility] Board Certified in Neurology, with special qualification in Child Neurology, and in Clinical Neurophysiology [facility]
== END ==
LOC: NEURO 07:37
PROVIDERS: ATTEND Pediatrics
DX: I69.351 Hemiplegia and hemiparesis following cerebral infarction affecting right dominant side (principal); R41.0 Disorientation, unspecified; R47.1 Dysarthria and anarthria; R26.89 Other abnormalities of gait and mobility
CPT/HCPCS: 95819

== ENCOUNTER → 2020-01-07 | Outpatient (CLI) | payer MEDICAID ==
[2020-01-07 11:44] LABS: ABSOLUTE EOSINOPHILS # (AUTO) 0.1 10^3/uL (0.0-0.6); ABSOLUTE LYMPHOCYTES (AUTO) 1.3 10^3/uL (0.5-4.7); ABSOLUTE MONOCYTES (AUTO) 0.5 10^3/uL (0.1-1.4); ABSOLUTE NEUT (AUTO) 4.7 10^3/uL (1.7-8.2); BASOPHILS % (AUTO) 0.2 % (0-2); HEMATOCRIT 37.8 % (37.9-51.0); HEMOGLOBIN 13.3 g/dL (13.5-17.0); LYMPHOCYTES % (AUTO) 19.6 % (13-45); MEAN CORPUSCULAR HEMOGLOBIN 29.5 pg (27.0-33.4); MEAN CORPUSCULAR HGB CONC 35.3 g/dL (32.0-36.0); MEAN CORPUSCULAR VOLUME 84 fl (80-97); MONOCYTES % (AUTO) 7.7 % (3-13); PLATELET COUNT 193 10^3/uL (150-450); RED BLOOD COUNT 4.52 10^6/uL (4.35-5.55); RED CELL DISTRIBUTION WIDTH 12.8 % (11.5-14.0); SEGMENTED NEUTROPHILS % (AUTO) 71.5 % (42-78); TOTAL CELLS COUNTED % (AUTO) 100 %; WHITE BLOOD COUNT 6.6 10^3/uL (4.0-10.5)
[2020-01-07 12:01] LABS: ALBUMIN 4.3 g/dL (3.5-5.0); ALKALINE PHOSPHATASE 84 U/L (38-126); ANION GAP 9 (5-19); ASPARTATE AMINO TRANSFERASE 24 U/L (17-59); BILIRUBIN,DIRECT 0.1 mg/dL (0.0-0.4); BILIRUBIN,TOTAL 0.7 mg/dL (0.2-1.3); BLOOD UREA NITROGEN 27 mg/dL (7-20); CALCIUM 9.4 mg/dL (8.4-10.2); CARBON DIOXIDE 27 mmol/L (22-30); CHLORIDE 100 mmol/L (98-107); CHOLESTEROL 155.63 mg/dL (0-200); GLUCOSE 92 mg/dL (75-110); POTASSIUM 4.8 mmol/L (3.6-5.0); TOTAL PROTEIN 7.5 g/dL (6.3-8.2); TRIGLYCERIDES 102 mg/dL (<150)
[2020-01-07 12:12] LABS: DIRECT LDL 92 mg/dL (<100)
[2020-01-08 07:38] LABS: CREATININE URINE 144.3 mg/dL (Not Estab.); MICROALBUMIN URINE 18.9 ug/mL (Not Estab.)
== END ==
LOC: OD 10:53
PROVIDERS: ATTEND Family Medicine Geriatric Medicine
DX: E11.21 Type 2 diabetes mellitus with diabetic nephropathy (principal); I10 Essential (primary) hypertension; Z79.899 Other long term (current) drug therapy
CPT/HCPCS: 36415; 80053; 80061; 82043; 82570; 83036; 85025

== ENCOUNTER → 2020-02-20 | Outpatient (CLI) | payer MEDICAID ==
[2020-02-20 09:34] LABS: HEMATOCRIT 39.1 % (37.9-51.0); HEMOGLOBIN 13.2 g/dL (13.5-17.0); MEAN CORPUSCULAR HEMOGLOBIN 28.7 pg (27.0-33.4); MEAN CORPUSCULAR HGB CONC 33.8 g/dL (32.0-36.0); MEAN CORPUSCULAR VOLUME 85 fl (80-97); PLATELET COUNT 237 10^3/uL (150-450); RED CELL DISTRIBUTION WIDTH 13.3 % (11.5-14.0); WHITE BLOOD COUNT 7.8 10^3/uL (4.0-10.5)
[2020-02-20 09:51] LABS: ALBUMIN 4.5 g/dL (3.5-5.0); ALKALINE PHOSPHATASE 99 U/L (38-126); ANION GAP 10 (5-19); ASPARTATE AMINO TRANSFERASE 38 U/L (17-59); BILIRUBIN,TOTAL 0.5 mg/dL (0.2-1.3); BLOOD UREA NITROGEN 20 mg/dL (7-20); CALCIUM 9.6 mg/dL (8.4-10.2); CARBON DIOXIDE 28 mmol/L (22-30); CHLORIDE 100 mmol/L (98-107); CHOLESTEROL 145.16 mg/dL (0-200); GLUCOSE 103 mg/dL (75-110); TOTAL PROTEIN 7.5 g/dL (6.3-8.2); TRIGLYCERIDES 135 mg/dL (<150)
[2020-02-20 10:03] LABS: DIRECT LDL 74 mg/dL (<100)
[2020-02-21 11:37] LABS: CREATININE URINE 102.1 mg/dL (Not Estab.); MICROALBUMIN URINE 23.3 ug/mL (Not Estab.)
== END ==
LOC: OD 08:28
PROVIDERS: ATTEND Family Medicine Geriatric Medicine
DX: E11.9 Type 2 diabetes mellitus without complications (principal); I10 Essential (primary) hypertension; E78.5 Hyperlipidemia, unspecified; Z79.899 Other long term (current) drug therapy
CPT/HCPCS: 36415; 80053; 80061; 82043; 82570; 83036; 85027

== ENCOUNTER → 2020-04-03 | Outpatient (CLI) | payer MEDICAID | LOC: OD 08:42 | PROVIDERS: ATTEND Family Medicine Geriatric Medicine | DX: E55.9 Vitamin D deficiency, unspecified (principal) | CPT/HCPCS: 36415; 82306 ==

== ENCOUNTER → 2020-06-29 | Outpatient (CLI) | payer MEDICAID ==
--- NOTE | 2020-06-29 15:16 | RADIOLOGY REPORT (SQ) ---
EXAM DESCRIPTION: U/S RETROPERITON (RENAL/AORTA) IMAGES COMPLETED DATE/TIME: 06/29/2020 2:34 pm REASON FOR STUDY: N18.31 CHRONIC KIDNEY DISEASE, STAGE 3A N18.31 CHRONIC KIDNEY DISEASE, STAGE 3A COMPARISON: None. TECHNIQUE: Dynamic and static grayscale images acquired of the kidneys and bladder and recorded on P ACS. Additional selected color Doppler and spectral images recorded. LIMITATIONS: None. FINDINGS: RIGHT KIDNEY: Normal size measuring 9.0 cm. Normal echogenicity. No solid or suspicious ma sses. No hydronephrosis. No calcifications. LEFT KIDNEY: Normal size measuring 9.0 cm. Normal echogenicity. No solid or suspicious masses. No hy dronephrosis. No calcifications. BLADDER: No masses. OTHER FINDINGS: No other significant finding. IMPRESSION: Unremarkable renal ultrasound. No hydronephrosis. TECHNICAL DOCUMENTATION: JOB ID: [id number] 2010 [employer]- All Rights Reserved Reading location - IP/workstation name: [email or web address]
== END ==
LOC: RAD 14:12
PROVIDERS: ATTEND Internal Medicine Nephrology
DX: N18.31 Chronic kidney disease, stage 3a (principal)
CPT/HCPCS: 76770

== ENCOUNTER → 2020-09-22 | Outpatient (CLI) | payer MEDICARE, MEDICAID ==
[2020-09-22 08:50] LABS: ABSOLUTE EOSINOPHILS # (AUTO) 0.1 10^3/uL (0.0-0.6); ABSOLUTE LYMPHOCYTES (AUTO) 1.1 10^3/uL (0.5-4.7); ABSOLUTE MONOCYTES (AUTO) 0.7 10^3/uL (0.1-1.4); ABSOLUTE NEUT (AUTO) 5.3 10^3/uL (1.7-8.2); BASOPHILS % (AUTO) 0.4 % (0-2); EOSINOPHILS % (AUTO) 1.1 % (0-6); HEMATOCRIT 34.6 % (37.9-51.0); HEMOGLOBIN 11.8 g/dL (13.5-17.0); LYMPHOCYTES % (AUTO) 15.8 % (13-45); MEAN CORPUSCULAR HEMOGLOBIN 28.8 pg (27.0-33.4); MEAN CORPUSCULAR HGB CONC 34.1 g/dL (32.0-36.0); MEAN CORPUSCULAR VOLUME 84 fl (80-97); MONOCYTES % (AUTO) 9.2 % (3-13); PLATELET COUNT 196 10^3/uL (150-450); RED BLOOD COUNT 4.11 10^6/uL (4.35-5.55); RED CELL DISTRIBUTION WIDTH 13.7 % (11.5-14.0); SEGMENTED NEUTROPHILS % (AUTO) 73.5 % (42-78); TOTAL CELLS COUNTED % (AUTO) 100 %; WHITE BLOOD COUNT 7.3 10^3/uL (4.0-10.5)
[2020-09-22 09:06] LABS: ALBUMIN 4.1 g/dL (3.5-5.0); ANION GAP 8 (5-19); BLOOD UREA NITROGEN 20 mg/dL (7-20); CALCIUM 9.1 mg/dL (8.4-10.2); CARBON DIOXIDE 27 mmol/L (22-30); CHLORIDE 101 mmol/L (98-107); GLUCOSE 92 mg/dL (75-110); IRON(TIBC) 83.1 ug/dL (49-181); PHOSPHORUS 3.2 mg/dL (2.5-4.5); POTASSIUM 4.5 mmol/L (3.6-5.0)
[2020-09-23 13:37] LABS: CREATININE URINE 152.4 mg/dL (Not Estab.); MICROALBUMIN URINE 26.1 ug/mL (Not Estab.)
== END ==
LOC: OD 08:17
PROVIDERS: ATTEND Internal Medicine Nephrology
DX: D64.9 Anemia, unspecified (principal); N18.31 Chronic kidney disease, stage 3a; R80.9 Proteinuria, unspecified
CPT/HCPCS: 36415; 80069; 82043; 82306; 82570; 82728; 83540; 83550; 83970; 85025

== ENCOUNTER 2020-09-24 15:07 | Inpatient (IN) | payer MEDICARE, MEDICAID ==
--- NOTE | 2020-09-24 16:21 | ER Document Report ---
ED Medical Screen (RME) - General Stated Complaint: RIGHT FOOT/LEG PROBLEMS Time Seen by Provider: 09/24/20 16:11 Primary Care Provider: HIMA GREGORIO MD [Primary Care Provider] - Follow up as needed Mode of Arrival: Ambulatory Information source: Patient Notes: 60-year-old male presenting to the emergency department from the podiatry office with request for evaluation for possible osteomyelitis. Patient has a chronic diabetic foot wound that they believe is getting worse. The patient denies any fever, chills, nausea, vomiting. Ulceration noted to plantar surface of right foot with surrounding erythema. I have greeted and performed a rapid initial assessment of this patient. A comprehensive ED assessment and evaluation of the patient, analysis of test results and completion of the medical decision making process will be conducted by additional ED providers. I have specifically instructed the patient or family members with the patient to immediately return to any nursing staff should anything change in the patient's condition or with their chief complaint. TRAVEL OUTSIDE OF THE [place] IN LAST 30 DAYS: No - Related Data Allergies/Adverse Reactions: No Known Allergies Allergy (Verified 03/08/19 10:57) Past Medical History - Past Medical History Cardiac Medical History: Reports: Hx Hypertension - MEDICATED Denies: Hx Heart Attack Pulmonary Medical History: Denies: Hx Asthma Neurological Medical History: Reports: Hx Cerebrovascular Accident - RIGHT SIDE WEAKNESS/PRN CANE. Denies: Hx Seizures Endocrine Medical History: Reports: Hx Diabetes Mellitus Type 2 Renal/ Medical History: Denies: Hx Peritoneal Dialysis. Comment Only: Hx End Stage Renal Disease - CKD GI Medical History: Denies: Hx Hepatitis, Hx Hiatal Hernia, Hx Ulcer Infectious Medical History: Denies: Hx Hepatitis Past Surgical History: Reports: Hx Orthopedic Surgery - right toe. Denies: Hx Open Heart Surgery, Hx Pacemaker Physical Exam - Vital signs Vitals: Temp Pulse Resp BP Pulse Ox 98.1 F 93 16 171/78 H 99 09/24/20 15:10 09/24/20 15:10 09/24/20 15:10 09/24/20 15:10 09/24/20 15:10 Course - Vital Signs Vital signs: Temp Pulse Resp BP Pulse Ox 98.1 F 93 16 171/78 H 99 09/24/20 15:10 09/24/20 15:10 09/24/20 15:10 09/24/20 15:10 09/24/20 15:10 Doctor's Discharge - Discharge Referrals: HIMA GREGORIO MD [Primary Care Provider] - Follow up as needed
[2020-09-24 17:46] LABS: APPEARANCE,URINE CLEAR; BILIRUBIN,URINE NEGATIVE (NEGATIVE); COLOR,URINE YELLOW; GLUCOSE, URINE NEGATIVE (NEGATIVE); KETONES,URINE NEGATIVE (NEGATIVE); LEUKOCYTE ESTERASE,URINE NEGATIVE (NEGATIVE); NITRITE,URINE NEGATIVE (NEGATIVE); PROTEIN,URINE NEGATIVE (NEGATIVE); URINE SPECIFIC GRAVITY 1.009
[2020-09-24 17:47] LABS: ABSOLUTE BASOPHILS # (AUTO) 0.1 10^3/uL (0.0-0.2); ABSOLUTE EOSINOPHILS # (AUTO) 0.1 10^3/uL (0.0-0.6); ABSOLUTE LYMPHOCYTES (AUTO) 1.5 10^3/uL (0.5-4.7); ABSOLUTE MONOCYTES (AUTO) 0.6 10^3/uL (0.1-1.4); ABSOLUTE NEUT (AUTO) 6.7 10^3/uL (1.7-8.2); BASOPHILS % (AUTO) 0.7 % (0-2); EOSINOPHILS % (AUTO) 0.7 % (0-6); HEMATOCRIT 35.2 % (37.9-51.0); HEMOGLOBIN 12.1 g/dL (13.5-17.0); LYMPHOCYTES % (AUTO) 16.4 % (13-45); MEAN CORPUSCULAR HGB CONC 34.3 g/dL (32.0-36.0); MEAN CORPUSCULAR VOLUME 85 fl (80-97); MONOCYTES % (AUTO) 7.1 % (3-13); PLATELET COUNT 224 10^3/uL (150-450); RED BLOOD COUNT 4.16 10^6/uL (4.35-5.55); RED CELL DISTRIBUTION WIDTH 13.3 % (11.5-14.0); SEGMENTED NEUTROPHILS % (AUTO) 75.1 % (42-78); TOTAL CELLS COUNTED % (AUTO) 100 %; WHITE BLOOD COUNT 8.9 10^3/uL (4.0-10.5)
--- NOTE | 2020-09-24 17:55 | RADIOLOGY REPORT (SQ) ---
EXAM DESCRIPTION: FOOT RIGHT COMPLETE IMAGES COMPLETED DATE/TIME: 09/24/2020 5:14 pm REASON FOR STUDY: eval for osteomyelitis COMPARISON: None. NUMBER OF VIEWS: Three views. TECHNIQUE: AP, lateral and oblique radiographic images acquired of the right foot. LIMITATIONS: None. FINDINGS: MINERALIZATION: Normal. BONES: No acute fracture or dislocation. No worrisome bone lesions. Plantar calcaneal spur. JOINTS: There are degenerative joint changes in the 1st interphalangeal joint. Cannot entirely rule out bone destruction at this level. SOFT TISSUES: No soft tissue swelling. No foreign body. OTHER: No other significant finding. IMPRESSION: Calcaneal spur. Degenerative joint changes in the 1st interphalangeal joint. Cannot ru le out osteomyelitis in the head of the 1st proximal phalanx or the base of the 1st distal phalanx. TECHNICAL DOCUMENTATION: JOB ID: [id number] 2010 [employer]- All Rights Reserved Reading location - IP/workstation name: [email or web address]
[2020-09-24 18:06] LABS: ALBUMIN 4.7 g/dL (3.5-5.0); ALKALINE PHOSPHATASE 121 U/L (38-126); ANION GAP 11 (5-19); ASPARTATE AMINO TRANSFERASE 24 U/L (17-59); BILIRUBIN,DIRECT 0.3 mg/dL (0.0-0.4); BILIRUBIN,TOTAL 0.6 mg/dL (0.2-1.3); BLOOD UREA NITROGEN 18 mg/dL (7-20); C-REACTIVE PROTEIN 31.2 mg/L (<10.0); CALCIUM 9.9 mg/dL (8.4-10.2); CARBON DIOXIDE 29 mmol/L (22-30); CHLORIDE 98 mmol/L (98-107); GLUCOSE 134 mg/dL (75-110); POTASSIUM 4.4 mmol/L (3.6-5.0); TOTAL PROTEIN 8.3 g/dL (6.3-8.2)
[2020-09-24 18:41] LABS: ERYTHROCYTE SEDIMENTATION RATE 47 mm/hr (0-20)
[2020-09-24] MEDS ORDERED: VANCOMYCIN HCL INJ 1000 MG VIAL IV ONE (21:13)
[2020-09-24] MEDS ORDERED: CEFTRIAXONE INJ 1000 MG VIAL IV ONE (21:14)
[2020-09-24] MEDS ORDERED: ACETAMINOPHEN 325 MG TABLET PO PRN (22:17)
--- NOTE | 2020-09-24 22:30 | RADIOLOGY REPORT (SQ) ---
EXAM DESCRIPTION: Site: CHEST SINGLE VIEW RP: XR CHEST 1 VIEW CLINICAL HISTORY: 60 years Male; assess aicd/pacemaker?; COMPARISON: 03/20/2018 FINDINGS: Lungs: Lungs are clear, with no focal infiltrate, pneumothorax, or pleural effusion. Mediastinum: Mediastinum is within normal limits for this positioning. Loop recorder is noted. There is no AICD or pacemaker. Bones: Bony structures are unremarkable. IMPRESSION: 1. No acute pulmonary findings.
--- NOTE | 2020-09-24 22:36 | ER Document Report ---
ED General - General Chief Complaint: Foot Pain Stated Complaint: RIGHT FOOT/LEG PROBLEMS Time Seen by Provider: 09/24/20 16:11 Primary Care Provider: HIMA GREGORIO MD [Primary Care Provider] - Follow up as needed Mode of Arrival: Ambulatory Notes: 60-year-old male history of diabetes prior first toe osteomyelitis with surgical resection not recently, stroke on Eliquis sent to ED by his senior design engineering specialist Dr. Lou for right foot diabetic wound infection for IV antibiotics. Patient is similar redness in the sole of his foot recently but unable to give further details. Patient denies pain, fever, vomiting, confusion, recent antibiotics TRAVEL OUTSIDE OF THE [place] IN LAST 30 DAYS: No - Related Data Allergies/Adverse Reactions: No Known Allergies Allergy (Verified 03/08/19 10:57) Past Medical History - General Information source: Patient - Social History Smoking Status: Unknown if Ever Smoked Family History: Reviewed & Not Pertinent - Past Medical History Cardiac Medical History: Reports: Hx Hypertension - MEDICATED Denies: Hx Heart Attack Pulmonary Medical History: Denies: Hx Asthma Neurological Medical History: Reports: Hx Cerebrovascular Accident - RIGHT SIDE WEAKNESS/PRN CANE. Denies: Hx Seizures Endocrine Medical History: Reports: Hx Diabetes Mellitus Type 2 Renal/ Medical History: Denies: Hx Peritoneal Dialysis. Comment Only: Hx End Stage Renal Disease - CKD GI Medical History: Denies: Hx Hepatitis, Hx Hiatal Hernia, Hx Ulcer Infectious Medical History: Denies: Hx Hepatitis Past Surgical History: Reports: Hx Orthopedic Surgery - right toe. Denies: Hx Open Heart Surgery, Hx Pacemaker Review of Systems - Review of Systems Notes: REVIEW OF SYSTEMS: CONSTITUTIONAL : Denies fever, chills, or sweats. EENT: Denies recent cold/sinus symptoms, denies throat pain CARDIOVASCULAR: Denies chest pain, CURT RESPIRATORY: Denies cough, denies shortness of breath. GASTROINTESTINAL: Denies abdominal pain, nausea/vomiting. GENITOURINARY: Denies difficulty urinating, painful urination. MUSCULOSKELETAL: Denies neck pain, back pain. SKIN: + rash or skin lesions. HEMATOLOGIC : Denies easy bruising or bleeding. LYMPHATIC: Denies swollen, enlarged glands. NEUROLOGICAL: Denies headache, denies change in gait. PSYCHIATRIC: Denies anxiety or stress or depression. Physical Exam - Vital signs Vitals: Temp Pulse Resp BP Pulse Ox 98.1 F 93 16 171/78 H 99 09/24/20 15:10 09/24/20 15:10 09/24/20 15:10 09/24/20 15:10 09/24/20 15:10 - Notes Notes: PHYSICAL EXAMINATION: GENERAL: Well-appearing, well-nourished and in no acute distress. HEAD: Atraumatic, normocephalic. EYES: Pupils equal round and appropriate constriction, sclera anicteric, conjunctiva are normal. ENT: nares patent, moist mucous membranes. NECK: Normal range of motion, supple without lymphadenopathy LUNGS: Breath sounds clear to auscultation bilaterally and equal. No wheezes rales or rhonchi. HEART: Regular rate and rhythm without murmurs ABDOMEN: Soft, nontender, no guarding, no masses, no CVAT EXTREMITIES: Normal range of motion, bilateral DP pulses 2+, normal strength and sensation, right first toe surgical incision and shortening of toe, sole of right foot with approximately 3 cm fluctuant with streaking from eschar across mid sole foot with increased warmth, no gross discharge NEUROLOGICAL: Awake, alert, conversing appropriately, moves all extremities spontaneously. PSYCH: Normal mood, normal affect. SKIN: Warm, Dry, normal turgor Course - Re-evaluation Re-evalutation: 09/24/20 22:34 Pt sent by senior design engineering specialist for IV antibiotics, rule out osteomyelitis/abscess. Pa tient with some streaking from an eschar which appears to be the source of infection. Patient with x-ray with possible first toe osteo. Otherwise patient feels well, no systemic symptoms, no other concerning findings on exam. Discussed case with Dr. Hopson who has accepted patient to medicine floor. 09/24/20 22:35 Order chest x-ray to assess whether chest implant is AICD or pacemaker, patient is not sure - Vital Signs Vital signs: Temp Pulse Resp BP Pulse Ox 98.1 F 93 16 171/78 H 99 09/24/20 15:10 09/24/20 15:10 09/24/20 15:10 09/24/20 15:10 09/24/20 15:10 - Laboratory Results Result Diagrams: 09/24/20 17:29 09/24/20 17:29 Laboratory Results Interpreted: 01/14/21 01/14/21 01/14/21 17:05 17:29 17:29 RBC 4.16 L Hgb 12.1 L Hct 35.2 L ESR 47 H Creatinine 1.63 H Est GFR ( Amer) 53 L Est GFR (MDRD) Non-Af 44 L Glucose 134 H C-Reactive Protein 31.2 H Total Protein 8.3 H Urine Urobilinogen 2.0 H Critical Laboratory Results Reviewed: No Critical Results - Radiology Results Critical Radiology Results Reviewed: No Critical Results Discharge - Discharge Clinical Impression: Diabetic foot infection Disposition: ADMITTED INPATIENT Admitting Provider: [facility] Admitted: Medical Floor Referrals: HIMA GREGORIO MD [Primary Care Provider] - Follow up as needed
[2020-09-24] MEDS ORDERED: DEXTROSE 50%-WATER 25 GM/50 ML DISP.SYRIN IV PRN ×2 (22:37)
[2020-09-24] MEDS ORDERED: DEXTROSE 40% GEL 15 GM TUBE PO PRN ×2 (22:37)
[2020-09-24] MEDS ORDERED: GLUCAGON,HUMAN RECOMB 1 MG INJ IM PRN (22:37)
[2020-09-24] MEDS ORDERED: VANCOMYCIN HCL 0 MG in DEXTROSE 5%-WATER 250 ML IV NR (22:45)
--- NOTE | 2020-09-24 22:45 | PDOC H&P ---
History of Present Illness Admission Date/PCP: HIMA GREGORIO MD Patient complains of: Right foot nonhealing wound History of Present Illness: JOSEPHINE MILLS is a 60 year old male with a history of insulin-dependent diabetes mellitus, CKD stage III, history of CVA who now presents with 2 months duration of a nonhealing ulcer on the plantar side of his right foot. Patient was seen by division operations manager Dr. Lou this morning and was sent to the ED for further emanuel luation due to concern for osteomyelitis. Patient also states that he noticed a blister near the ulcer area over the past 2 to 3 days. 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 Patient also denies any fever, chills, nausea, vomiting. Similar wound on the right big toe and was diagnosed with osteomyelitis in 2017 resulting in partial amputation of the right big toe. Past Medical History Cardiac Medical History: Reports: Hypertension - MEDICATED Denies: Myocardial Infarction Pulmonary Medical History: Denies: Asthma Neurological Medical History: Denies: Seizures Endocrine Medical History: Reports: Diabetes Mellitus Type 2 Renal/ Medical History: Comment Only: End Stage Renal Disease - CKD GI Medical History: Denies: Hepatitis, Hiatal Hernia Hematology: Denies: Anemia, Sickle Cell Disease Past Surgical History Past Surgical History: Reports: Orthopedic Surgery - right toe Denies: Pacemaker Social History Information Source: Patient Lives with: Family Smoking Status: Unknown if Ever Smoked Frequency of Alcohol Use: Occasional Hx Recreational Drug Use: No Drugs: None - Advance Directive Resuscitation Status: Full Code Family History Family History: Reviewed & Not Pertinent Parental Family History Reviewed: Yes Children Family History Reviewed: Yes Sibling(s) Family History Reviewed.: Yes Medication/Allergy Home Medications: Aspirin [Blas Chewable Aspirin] 81 mg PO DAILY 02/25/19 Atorvastatin Calcium [Lipitor] 80 mg PO DAILY 02/25/19 Ergocalciferol (Vitamin D2) [Vitamin D2] 2,000 unit PO DAILY 02/25/19 Fluoxetine HCl [Prozac] 20 mg PO DAILY 02/25/19 Gabapentin [Neurontin 300 mg Capsule] 300 mg PO Q12 02/25/19 Insulin Glargine,Hum.rec.anlog [Lantus Insulin 100 Unit/1 ml 10 ml] 35 unit SUBCUT DAILY 02/25/19 Ketorolac Tromethamine 0.45% [Acuvail 0.45% Oph Soln 0.4 ml/Dropperette] 1 drop OD .ASDIR 02/25/19 Lisinopril [Zestril] 10 mg PO DAILY 02/25/19 Moxifloxacin HCl [Vigamox 0.5% Oph Soln 3 ml] 1 drop OP ASDIR 02/25/19 Pantoprazole Sodium 40 mg PO DAILY 02/25/19 Prednisolone Acetate [Pred Forte] 1 drop OP .ASDIR 02/25/19 Tramadol HCl [Ultram] 50 mg PO TID 02/25/19 Allergies/Adverse Reactions: No Known Allergies Allergy (Verified 03/08/19 10:57) Review of Systems Constitutional: ABSENT: chills, fever(s), headache(s), weight gain, weight loss Eyes: ABSENT: visual disturbances Ears: ABSENT: hearing changes Cardiovascular: ABSENT: chest pain, dyspnea on exertion, edema, orthropnea, palpitations Respiratory: ABSENT: cough, hemoptysis Gastrointestinal: ABSENT: abdominal pain, constipation, diarrhea, hematemesis, hematochezia, nausea, vomiting Genitourinary: ABSENT: dysuria, hematuria Musculoskeletal: ABSENT: joint swelling Integumentary: PRESENT: as per HPI Neurological: ABSENT: abnormal gait, abnormal speech, confusion, dizziness, focal weakness, syncope Psychiatric: ABSENT: anxiety, depression, homidical ideation, suicidal ideation Endocrine: ABSENT: cold intolerance, heat intolerance, polydipsia, polyuria Hematologic/Lymphatic: ABSENT: easy bleeding, easy bruising Physical Exam Vital Signs: Temp Pulse Resp BP Pulse Ox 98.1 F 93 16 171/78 H 99 09/24/20 15:10 09/24/20 15:10 09/24/20 15:10 09/24/20 15:10 09/24/20 15:10 Additional comments: GENERAL APPEARANCE: Alert and oriented x3, in no acute distress HEENT: Normocephalic and atraumatic. No scleral icterus. Moist oral mucosa NECK: Supple. No lymphadenopathy or tenderness. No carotid bruit. No JVD CHEST: Symmetric. Nontender to palpation. LUNGS: Clear with good air entry bilaterally. No wheezing or crackles HEART: Regular rate and rhythm with normal S1 and S2. No murmurs, gallops, or rubs. ABDOMEN: soft, active bowel sounds, no direct or rebound tenderness. No organomegaly detected. EXTREMITIES: No cyanosis, clubbing, or edema. There is a 1 x 1 cm ulcerated wound on the sole of his right foot which is located laterally near the 4th and 5th digits. There is about a 2 x 2 centimeter fluctuant swelling proximal to the ulcer. There is also an area of surrounding redness which extends to the medial side of his foot. There is no tenderness or differential warmth MUSCULOSKELETAL: No deformity, atrophy or swelling noted PSYCHIATRIC: Recent and remote memory is intact. Appropriate mood and affect. NEUROLOGIC: No focal sensory or motor deficits are noted. Results Laboratory Results: 09/24/20 17:29 09/24/20 17:29 09/24/20 09/24/20 09/24/20 17:05 17: 17:29 WBC 8.9 RBC 4.16 L Hgb 12.1 L Hct 35.2 L MCV 85 MCH 29.0 MCHC 34.3 RDW 13.3 Plt Count 224 Seg Neutrophils % 75.1 Sodium 137.6 Potassium 4.4 Chloride 98 Carbon Dioxide 29 Anion Gap 11 BUN 18 Creatinine 1.63 H Est GFR ( Amer) 53 L Glucose 134 H Lactic Acid Calcium 9.9 Total Bilirubin 0.6 AST 24 Alkaline Phosphatase 121 C-Reactive Protein 31.2 H Total Protein 8.3 H Albumin 4.7 Urine Color YELLOW Urine Appearance CLEAR Urine pH 6.0 Ur Specific [place] 1.009 Urine Protein NEGATIVE Urine Glucose (UA) NEGATIVE Urine Ketones NEGATIVE Urine Blood NEGATIVE Urine Nitrite NEGATIVE Ur Leukocyte Esterase NEGATIVE Urine WBC (Auto) 0 Urine RBC (Auto) 0 09/24/20 17:29 WBC RBC Hgb Hct MCV MCH MCHC RDW Plt Count Seg Neutrophils % Sodium Potassium Chloride Carbon Dioxide Anion Gap BUN Creatinine Est GFR ( Amer) Glucose Lactic Acid 0.7 Calcium Total Bilirubin AST Alkaline Phosphatase C-Reactive Protein Total Protein Albumin Urine Color Urine Appearance Urine pH Ur Specific [place] Urine Protein Urine Glucose (UA) Urine Ketones Urine Blood Urine Nitrite Ur Leukocyte Esterase Urine WBC (Auto) Urine RBC (Auto) Impressions: Foot X-Ray 09/24/20 16:31 IMPRESSION: Calcaneal spur. Degenerative joint changes in the 1st interphalangeal joint. Cannot rule out osteomyelitis in the head of the 1st proximal phalanx or the base of the 1st distal phalanx. Chest X-Ray 09/24/20 21:53 IMPRESSION: 1. No acute pulmonary findings. Assessment and Plan - Diagnosis (1) Diabetic foot infection Is this a current diagnosis for this admission?: Yes Plan: Patient presents with right lower extremity nonhealing wound There is a 1 x 1 cm foot ulcer and a 2 x 2 centimeter fluctuant possible abscess collection on the plantar surface of right foot Has soft tissue infection with purulent cellulitis X-ray of the foot showed DJD, calcaneal spur and osteomyelitis could not be ruled out ESR 47, CRP 31 Started on Vanco and cefepime Consult with surgery for possible abscess drainage and debridement Ordered MRI of the foot to rule out osteomyelitis (2) Insulin dependent diabetes mellitus Is this a current diagnosis for this admission?: Yes Plan: Patient states that he is currently on Lantus insulin 50 units daily and Metformin We will place him on Accu-Chek, sliding scale insulin, hypoglycemia protocol Continue Lantus insulin 35 units daily (3) Stage 3 chronic kidney disease Is this a current diagnosis for this admission?: Yes Plan: BUN/creatinine appears at baseline Continue monitoring renal indicis Renally dose medications and avoid nephrotoxic (4) History of CVA (cerebrovascular accident) Is this a current diagnosis for this admission?: Yes Plan: Patient reports that he had a CVA in 2018 Currently has no new focal neurologic deficits Continue aspirin and statin for secondary prevention (5) Overweight (BMI 25.0-29.9) Is this a current diagnosis for this admission?: Yes Plan: Encouraged patient to do regular exercise as tolerated and make dietary adjustments to attain optimal weight - Time Time Spent with patient: 35 or more minutes Total Critical Time (Minutes): 45 Medications reviewed and adjusted accordingly: Yes Anticipated Discharge Disposition: Home, Self Care Anticipated Discharge Timeframe: within 72 hours - Inpatient Certification Based on my medical assessment, after consideration of the patient's comorbidities, presenting symptoms, or acuity I expect that the services needed warrant INPATIENT care.: Yes I certify that my determination is in accordance with my understanding of Medicare's requirements for reasonable and necessary INPATIENT services [42 CFR 412.3e].: Yes Medical Necessity: Significant Comorbidiites Make Outpatient Treatment Too Risky, Need Close Monitoring Due to Risk of Patient Decompensation, Need for IV Antibiotics, Risk of Complication if Not Cared For in Hospital Post Hospital Care: D/C or Transfer Summary
[2020-09-24] MEDS ORDERED: GABAPENTIN 300 MG CAPSULE PO ONE (23:15)
[2020-09-24] MEDS ORDERED: CEFEPIME 1 GM/D5W RTU 1 GM/50 ML RTUPB IV ONE (23:15)
[2020-09-25] MEDS ORDERED: CEFEPIME 1 GM/D5W RTU 1 GM/50 ML RTUPB IV ONE (01:58)
[2020-09-25] MEDS ORDERED: GABAPENTIN 300 MG CAPSULE PO ONE (02:15)
[2020-09-25] MEDS ORDERED: PANTOPRAZOLE SODIUM 40 MG TABLET.DR PO SCH (06:00)
[2020-09-25 07:27] LABS: ABSOLUTE EOSINOPHILS # (AUTO) 0.1 10^3/uL (0.0-0.6); ABSOLUTE LYMPHOCYTES (AUTO) 1.1 10^3/uL (0.5-4.7); ABSOLUTE MONOCYTES (AUTO) 0.6 10^3/uL (0.1-1.4); ABSOLUTE NEUT (AUTO) 4.3 10^3/uL (1.7-8.2); BASOPHILS % (AUTO) 0.3 % (0-2); EOSINOPHILS % (AUTO) 1.4 % (0-6); HEMATOCRIT 29.4 % (37.9-51.0); HEMOGLOBIN 10.3 g/dL (13.5-17.0); LYMPHOCYTES % (AUTO) 18.7 % (13-45); MEAN CORPUSCULAR HEMOGLOBIN 29.2 pg (27.0-33.4); MEAN CORPUSCULAR VOLUME 84 fl (80-97); MONOCYTES % (AUTO) 9.3 % (3-13); PLATELET COUNT 185 10^3/uL (150-450); RED BLOOD COUNT 3.51 10^6/uL (4.35-5.55); RED CELL DISTRIBUTION WIDTH 13.3 % (11.5-14.0); SEGMENTED NEUTROPHILS % (AUTO) 70.3 % (42-78); TOTAL CELLS COUNTED % (AUTO) 100 %; WHITE BLOOD COUNT 6.1 10^3/uL (4.0-10.5)
[2020-09-25 07:43] LABS: BLOOD UREA NITROGEN 17 mg/dL (7-20); CALCIUM 8.9 mg/dL (8.4-10.2); CHLORIDE 103 mmol/L (98-107); GLUCOSE 143 mg/dL (75-110); POTASSIUM 4.3 mmol/L (3.6-5.0)
[2020-09-25 07:49] LABS: ANION GAP 5 (5-19); CARBON DIOXIDE 27 mmol/L (22-30)
[2020-09-25] MEDS: INSULIN REG, HUMAN 100 UNIT/ML 3 ML VIAL (PYX) SUBCUT SCH ×3 (08:03→16:52)
[2020-09-25] MEDS ORDERED: LIDOCAINE 2% INJ-PF (20 MG/ML) 2 ML AMPUL ONE (09:48)
[2020-09-25] MEDS ORDERED: LISINOPRIL 10 MG TABLET PO SCH (10:00)
[2020-09-25] MEDS ORDERED: VANCOMYCIN HCL 1,250 MG in DEXTROSE 5%-WATER 250 ML IV SCH (10:00)
[2020-09-25] MEDS ORDERED: GABAPENTIN 300 MG CAPSULE PO SCH (10:00)
[2020-09-25] MEDS ORDERED: INSULIN GLARGINE,HUM.REC.ANLOG 1,000 UNIT/10 ML VIAL SUBCUT SCH (10:00)
[2020-09-25] MEDS ORDERED: CEFEPIME 1 GM/D5W RTU 1 GM/50 ML RTUPB IV SCH (10:00)
[2020-09-25] MEDS ORDERED: FLUOXETINE HCL 20 MG CAPSULE PO SCH (10:00)
[2020-09-25] MEDS ORDERED: ENOXAPARIN SODIUM INJ 40 MG/0.4 ML DISP.SYRIN SUBCUT SCH (10:00)
[2020-09-25] MEDS ORDERED: ASPIRIN 81 MG TABLET, CHEWABLE PO SCH (10:00)
[2020-09-25] MEDS ORDERED: MIDAZOLAM 2 MG/2 ML INJ ONE (10:33)
[2020-09-25] MEDS ORDERED: PROPOFOL INJ 200 MG/20 ML VIAL IV ONE ×2 (10:33→11:15)
[2020-09-25] MEDS ORDERED: BUPIVACAINE HCL 0.25 % INJ/PF (2.5 MG/1 ML) 30 ML VIAL ONE (10:33)
[2020-09-25] MEDS ORDERED: FENTANYL CITRATE INJ/PF 100 MCG/2 ML AMPUL ONE (10:33)
[2020-09-25] MEDS ORDERED: EPHEDRINE SULFATE INJ 50 MG/1 ML AMPULE ONE (10:34)
--- NOTE | 2020-09-25 10:52 | PDOC CONSULTATION ---
Consultation Consult Date: 09/25/20 Provider Consulted: SURGICAL SURGICALIST Consult reason:: diabetic foot, possible infection History of Present Illness Admission Date/PCP: 09/24/20 22:44 HIMA GREGORIO MD Patient complains of: right foot pain History of Present Illness: JOSEPHINE MILLS is a 60 year old diabetic male. He presents with a several day history of pain, swelling, and redness of the right foot. Patient saw his forest pathologist, who examined the blister on the right foot, and prescribed the patient antibiotics. He has been receiving antibiotics for the last several days. He continues to complain of pain in the foot with walking. He reports that he cannot perform his activities of daily living with the blistered area on his foot. The patient denies fevers, chills, nausea, vomiting, abdominal pain. He reports minimal redness around the blister, that has improved with antibiotics. He denies significant pedal edema. He does report chronic neurop athy/numbness. Past Medical History Cardiac Medical History: Reports: Hypertension - MEDICATED Denies: Myocardial Infarction Pulmonary Medical History: Denies: Asthma Neurological Medical History: Denies: Seizures Endocrine Medical History: Reports: Diabetes Mellitus Type 2 Renal/ Medical History: Comment Only: End Stage Renal Disease - CKD GI Medical History: Denies: Hepatitis, Hiatal Hernia Psychiatric Medical History: Denies: Depression Hematology: Denies: Anemia, Sickle Cell Disease Past Surgical History Past Surgical History: Reports: Orthopedic Surgery - right toe Denies: Pacemaker Social History Lives with: Family Smoking Status: Unknown if Ever Smoked Electronic Cigarette use?: No Frequency of Alcohol Use: Occasional Hx Recreational Drug Use: No Drugs: None Hx Prescription Drug Abuse: No - Advance Directive Resuscitation Status: Full Code Family History Family History: Reviewed & Not Pertinent Parental Family History Reviewed: Yes Children Family History Reviewed: Yes Sibling(s) Family History Reviewed.: Yes Medication/Allergy Home Medications: Atorvastatin Calcium [Lipitor] 80 mg PO DAILY 02/25/19 Ergocalciferol (Vitamin D2) [Vitamin D2] 2,000 unit PO DAILY 02/25/19 Fluoxetine HCl [Prozac] 20 mg PO DAILY 02/25/19 Gabapentin [Neurontin 300 mg Capsule] 300 mg PO Q12 02/25/19 Insulin Glargine,Hum.rec.anlog [Lantus Insulin 100 Unit/1 ml 10 ml] 35 unit SUBCUT DAILY 02/25/19 Lisinopril [Zestril] 10 mg PO DAILY 02/25/19 Pantoprazole Sodium 40 mg PO DAILY 02/25/19 Tramadol HCl [Ultram] 50 mg PO TID PRN 02/25/19 Allergies/Adverse Reactions: No Known Allergies Allergy (Verified 03/08/19 10:57) Review of Systems Constitutional: ABSENT: anorexia, chills, fatigue Eyes: ABSENT: visual disturbances Ears: ABSENT: hearing changes Nose, Mouth, and Throat: ABSENT: sore throat Cardiovascular: ABSENT: chest pain Respiratory: ABSENT: cough Gastrointestinal: ABSENT: abdominal pain, bloating Genitourinary: ABSENT: dysuria Musculoskeletal: ABSENT: back pain Neurological: PRESENT: paresthesias. ABSENT: confusion, convulsions, dizziness Psychiatric: ABSENT: anxiety, depression Hematologic/Lymphatic: ABSENT: easy bleeding, easy bruising Physical Exam Vital Signs: Temp Pulse Resp BP Pulse Ox 98.2 F 73 14 108/56 L 98 09/25/20 10:09 09/25/20 10:09 09/25/20 10:09 09/25/20 10:09 09/25/20 10:09 Intake & Output 09/24/20 09/25/20 09/26/20 06:59 06:59 06:59 Intake Total 300 50 Balance 300 50 Weight 99.3 kg General appearance: PRESENT: no acute distress, cooperative Head exam: PRESENT: atraumatic, normocephalic Eye exam: PRESENT: EOMI, PERRLA. ABSENT: scleral icterus Mouth exam: PRESENT: moist, neck supple Neck exam: ABSENT: meningismus, tenderness, thyromegaly Respiratory exam: PRESENT: unlabored. ABSENT: tachypnea, wheezes Cardiovascular exam: ABSENT: tachycardia Vascular exam: PRESENT: normal capillary refill GI/Abdominal exam: PRESENT: soft. ABSENT: distended, tenderness Rectal exam: PRESENT: deferred Extremities exam: PRESENT: other - Blister to the right lateral plantar surface of the foot. Tiny amount of erythema. No obvious purulence. No induration.. ABSENT: clubbing Neurological exam: PRESENT: alert, awake, oriented to person, oriented to place, oriented to time Psychiatric exam: PRESENT: anxious. ABSENT: agitated, depressed Focused psych exam: ABSENT: delusional Skin exam: PRESENT: erythema - Minimal erythema at blister site, see extremity exam. ABSENT: cyanosis, jaundice Results Laboratory Results: 09/25/20 06:00 09/25/20 06:00 09/24/20 09/24/20 09/24/20 17:05 17:29 17:29 WBC 8.9 RBC 4.16 L Hgb 12.1 L Hct 35.2 L MCV 85 MCH 29.0 MCHC 34.3 RDW 13.3 Plt Count 224 Seg Neutrophils % 75.1 Sodium 137.6 Potassium 4.4 Chloride 98 Carbon Dioxide 29 Anion Gap 11 BUN 18 Creatinine 1.63 H Est GFR ( Amer) 53 L Glucose 134 H Lactic Acid Calcium 9.9 Total Bilirubin 0.6 AST 24 Alkaline Phosphatase 121 C-Reactive Protein 31.2 H Total Protein 8.3 H Albumin 4.7 Urine Color YELLOW Urine Appearance CLEAR Urine pH 6.0 Ur Specific [place] 1.009 Urine Protein NEGATIVE Urine Glucose (UA) NEGATIVE Urine Ketones NEGATIVE Urine Blood NEGATIVE Urine Nitrite NEGATIVE Ur Leukocyte Esterase NEGATIVE Urine WBC (Auto) 0 Urine RBC (Auto) 0 09/24/20 09/25/20 09/25/20 17:29 06:00 06:00 WBC 6.1 RBC 3.51 L Hgb 10.3 L Hct 29.4 L MCV 84 MCH 29.2 MCHC 35.0 RDW 13.3 Plt Count 185 Seg Neutrophils % 70.3 Sodium 135.2 L Potassium 4.3 Chloride 103 Carbon Dioxide 27 Anion Gap 5 BUN 17 Creatinine 1.43 H Est GFR ( Amer) > 60 Glucose 143 H Lactic Acid 0.7 Calcium 8.9 Total Bilirubin AST Alkaline Phosphatase C-Reactive Protein Total Protein Albumin Urine Color Urine Appearance Urine pH Ur Specific [place] Urine Protein Urine Glucose (UA) Urine Ketones Urine Blood Urine Nitrite Ur Leukocyte Esterase Urine WBC (Auto) Urine RBC (Auto) Impressions: Foot X-Ray 09/24/20 16:31 IMPRESSION: Calcaneal spur. Degenerative joint changes in the 1st interphalangeal joint. Cannot rule out osteomyelitis in the head of the 1st proximal phalanx or the base of the 1st distal phalanx. Chest X-Ray 09/24/20 21:53 IMPRESSION: 1. No acute pulmonary findings. Assessment & Plan - Diagnosis (1) Foot and toe(s), blister, without mention of infection Is this a current diagnosis for this admission?: Yes - Plan Summary Plan Summary: This is a 60-year-old diabetic male with a blister to the right lateral plantar foot. X-rays were performed showing the "possibility" of osteomyelitis of the first digit of the right foot. This is in no way involved with the blister. In fact, it is on the opposite side of the foot. I have no clinical suspicion for osteomyelitis. I have discussed this with the patient at length. The patient complains of pain in the foot, and erythema. His erythema has improved significantly after antibiotics have been started as an outpatient. At this time, I do not see significant evidence for active infection (however the presence of antibiotics may mask this). I have discussed treatment options with the patient at length. I have offered him nonoperative management with close o bservation versus debridement of the blister. The risks and benefits of both of these approaches were detailed with him. He is insistent upon surgical debridement with exploration to ensure that there is no active infection present. Informed consent was obtained, and all questions were answered. We will proceed with unroofing/debridement of the patient's blister. He will require close follow-up with his forest pathologist to ensure adequate healing of the open wound.
--- NOTE | 2020-09-25 11:50 | Operative Report ---
Nonrecallable Operative Report DATE OF SURGERY: 09/25/20 PREOPERATIVE DIAGNOSIS: Blister to the right lateral plantar foot. POSTOPERATIVE DIAGNOSIS: Infected blister to the right lateral plantar foot. OPERATION: 1. Incision and drainage of blister of the right lateral plantar foot. 2. Debridement of skin of the right plantar foot, measuring 5 x 3 cm. SURGEON: RUI GREER ANESTHESIA: LMAC TISSUE REMOVED OR ALTERED: 1. Skin of the right plantar foot. 2. Wound culture. COMPLICATIONS: None apparent ESTIMATED BLOOD LOSS: Minimal PROCEDURE: Drains/implants: Xeroform gauze. Procedure in detail: After informed consent was obtained, the patient was brought to the operating room and laid in the supine position. The area of the right foot was prepped and draped in a normal sterile fashion. There is a 5 x 3 cm blister apparent on the plantar surface of the foot. The blister was unroofed, removing all of the overlying skin. Within the blister, there was found to be seropurulent fluid. This was sent for wound culture. After the overlying skin was debrided away sharply, the foot was inspected. There was no extension of the blister to the deeper tissues of the foot. The bone was not exposed in this area. At this time I have very low clinical suspicion for osteomyelitis or extensive deep tissue infection. A dressing was then placed, and the procedure was concluded. All sponge, instrument, and needle counts were correct x2. Condition: Stable.
[2020-09-25] MEDS ORDERED: FENTANYL CITRATE INJ/PF 100 MCG/2 ML AMPUL IV PRN ×3 (11:51)
[2020-09-25] MEDS ORDERED: INSULIN GLARGINE,HUM.REC.ANLOG 1,000 UNIT/10 ML VIAL (PYX) SUBCUT ONE (14:00)
[2020-09-25 17:20] VITALS: BP 138/87
--- NOTE | 2020-09-25 20:51 | PDOC DISCHARGE SUMMARY ---
Impression - Admit/DC Date/PCP Admission Date/Primary Care Provider: 09/24/20 22:44 HIMA GREGORIO MD Discharge Date: 09/25/20 - Discharge Diagnosis (1) Foot and toe(s), blister, without mention of infection Is this a current diagnosis for this admission?: Yes (2) Insulin dependent diabetes mellitus Is this a current diagnosis for this admission?: Yes (3) Overweight (BMI 25.0-29.9) Is this a current diagnosis for this admission?: Yes (4) Stage 3 chronic kidney disease Is this a current diagnosis for this admission?: Yes - Assessment Summary: JOSEPHINE MILLS is a 60 year old male with a history of insulin-dependent diabetes mellitus, CKD stage III, history of CVA who presented with 2 months duration of a nonhealing blister on the lateral plantar side of his right foot. 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 Patient also denied any fever, chills, nausea, vomiting. X-rays were performed showing the "possibility" of osteomyelitis of the first digit of the right foot. Surgery was consulted and felt that this was in no way related to the blister which was located on the opposite side of the foot. There was no clinical suspicion for osteomyelitis or cellulitis. The foot, in fact, appeared quite benign. General surgeon (Dr. Rodas) offered him nonoperative management with close observation versus debridement of the blister. The risks and benefits of both of these approaches were detailed with him and he was insistent upon surgical debridement with exploration to ensure that there is no active infection present. He went to the OR for unroofing/debridement of the blister on 09/25/2020. Operative report: "The blister was unroofed, removing all of the overlying skin. Within the blister, there was found to be seropurulent fluid. This was sent for wound culture. After the overlying skin was debrided away sharply, the foot was inspected. There was no extension of the blister to the deeper tissues of the foot. The bone was not exposed in this area. At this time I have very low clinical suspicion for osteomyelitis or extensive deep tissue infection." Patient was discharged home in stable condition with oral antibiotics and close outpatient podiatry/surgery follow up. was arranged for ongoing wound care services. - Additional Information Resuscitation Status: Full Code Discharge Diet: Cardiac, Diabetic Discharge Activity: Activity As Tolerated, Keep Legs Elevated Referrals: HIMA GREGORIO MD [Primary Care Provider] - Follow up as needed RUI RODAS MD [ACTIVE STAFF] - Prescriptions: Cefpodoxime Proxetil [Vantin 200 Mg Tablet] 400 mg PO BID #28 tablet Home Medications: Atorvastatin Calcium [Lipitor] 80 mg PO DAILY 02/25/19 Ergocalciferol (Vitamin D2) [Vitamin D2] 2,000 unit PO DAILY 02/25/19 Fluoxetine HCl [Prozac] 20 mg PO DAILY 02/25/19 Gabapentin [Neurontin 300 mg Capsule] 300 mg PO Q12 02/25/19 Insulin Glargine,Hum.rec.anlog [Lantus Insulin 100 Unit/1 ml 10 ml] 35 unit SUBCUT DAILY 02/25/19 Lisinopril [Zestril] 10 mg PO DAILY 02/25/19 Pantoprazole Sodium 40 mg PO DAILY 02/25/19 Tramadol HCl [Ultram] 50 mg PO TID PRN 02/25/19 Cefpodoxime Proxetil [Vantin 200 Mg Tablet] 400 mg PO BID #28 tablet 09/25/20 History of Present Illiness History of Present Illness: JOSEPHINE MILLS is a 60 year old male Physical Exam Vital Signs: Temp Pulse Resp BP Pulse Ox 97.6 F 82 17 138/87 H 99 09/25/20 17:16 09/25/20 17:16 09/25/20 17:16 09/25/20 17:16 09/25/20 17:16 Intake & Output 09/24/20 09/25/20 09/26/20 06:59 06:59 06:59 Intake Total 300 400 Balance 300 400 Weight 99.3 kg Results Laboratory Results: WBC 6.1 10^3/uL (4.0-10.5) 09/25/20 06:00 RBC 3.51 10^6/uL (4.35-5.55) L 09/25/20 06:00 Hgb 10.3 g/dL (13.5-17.0) L 09/25/20 06:00 Hct 29.4 % (37.9-51.0) L 09/25/20 06:00 MCV 84 fl (80-97) 09/25/20 06:00 MCH 29.2 pg (27.0-33.4) 09/25/20 06:00 MCHC 35.0 g/dL (32.0-36.0) 09/25/20 06:00 RDW 13.3 % (11.5-14.0) 09/25/20 06:00 Plt Count 185 10^3/uL (150-450) 09/25/20 06:00 Lymph % (Auto) 18.7 % (13-45) 09/25/20 06:00 Turner % (Auto) 9.3 % (3-13) 09/25/20 06:00 Eos % (Auto) 1.4 % (0-6) 09/25/20 06:00 Baso % (Auto) 0.3 % (0-2) 09/25/20 06:00 Absolute Neuts (auto) 4.3 10^3/uL (1.7-8.2) 09/25/20 06:00 Absolute Lymphs (auto) 1.1 10^3/uL (0.5-4.7) 09/25/20 06:00 Absolute Monos (auto) 0.6 10^3/uL (0.1-1.4) 09/25/20 06:00 Absolute Eos (auto) 0.1 10^3/uL (0.0-0.6) 09/25/20 06:00 Absolute Basos (auto) 0.0 10^3/uL (0.0-0.2) 09/25/20 06:00 Seg Neutrophils % 70.3 % (42-78) 09/25/20 06:00 ESR 47 mm/hr (0-20) H 09/24/20 17:29 Sodium 135.2 mmol/L (137-145) L 09/25/20 06:00 Potassium 4.3 mmol/L (3.6-5.0) 09/25/20 06:00 Chloride 103 mmol/L (98-107) 09/25/20 06:00 Carbon Dioxide 27 mmol/L (22-30) 09/25/20 06:00 Anion Gap 5 (5-19) 09/25/20 06:00 BUN 17 mg/dL (7-20) 09/25/20 06:00 Creatinine 1.43 mg/dL (0.52-1.25) H 09/25/20 06:00 Est GFR ( Amer) > 60 (>60) 09/25/20 06:00 Est GFR (MDRD) Non-Af 51 (>60) L 09/25/20 06:00 Glucose 143 mg/dL (75-110) H 09/25/20 06:00 POC Glucose 180 mg/dL (70-110) H 09/25/20 16:20 Lactic Acid 0.7 mmol/L (0.7-2.1) 09/24/20 17:29 Calcium 8.9 mg/dL (8.4-10.2) 09/25/20 06:00 Total Bilirubin 0.6 mg/dL (0.2-1.3) 09/24/20 17:29 Direct Bilirubin 0.3 mg/dL (0.0-0.4) 09/24/20 17:29 Neonat Total Bilirubin Not Reportable 09/24/20 17:29 Neonat Direct Bilirubin Not Reportable 09/24/20 17:29 Neonat Indirect Bili Not Reportable 09/24/20 17:29 AST 24 U/L (17-59) 09/24/20 17:29 ALT 33 U/L (<50) 09/24/20 17:29 Alkaline Phosphatase 121 U/L (38-126) 09/24/20 17:29 C-Reactive Protein 31.2 mg/L (<10.0) H 09/24/20 17:29 Total Protein 8.3 g/dL (6.3-8.2) H 09/24/20 17:29 Albumin 4.7 g/dL (3.5-5.0) 09/24/20 17:29 Urine Color YELLOW 09/24/20 17:05 Urine Appearance CLEAR 09/24/20 17:05 Urine pH 6.0 (5.0-9.0) 09/24/20 17:05 Ur Specific Tyner 1.009 09/24/20 17:05 Urine Protein NEGATIVE mg/dL (NEGATIVE) 09/24/20 17:05 Urine Glucose (UA) NEGATIVE mg/dL (NEGATIVE) 09/24/20 17:05 Urine Ketones NEGATIVE mg/dL (NEGATIVE) 09/24/20 17:05 Urine Blood NEGATIVE (NEGATIVE) 09/24/20 17:05 Urine Nitrite NEGATIVE (NEGATIVE) 09/24/20 17:05 Urine Bilirubin NEGATIVE (NEGATIVE) 09/24/20 17:05 Urine Urobilinogen 2.0 mg/dL (<2.0) H 09/24/20 17:05 Ur Leukocyte Esterase NEGATIVE (NEGATIVE) 09/24/20 17:05 Urine WBC (Auto) 0 /HPF 09/24/20 17:05 Urine RBC (Auto) 0 /HPF 09/24/20 17:05 Squamous Epi Cells Auto <1 /HPF 09/24/20 17:05 Urine Mucus (Auto) RARE /LPF 09/24/20 17:05 Urine Ascorbic Acid NEGATIVE (NEGATIVE) 09/24/20 17:05 Influenza A (RT-PCR) NEGATIVE (NEGATIVE) 09/25/20 09:21 Influenza B (RT-PCR) NEGATIVE (NEGATIVE) 09/25/20 09:21 RSV (RT-PCR) NEGATIVE (NEGATIVE) 09/25/20 09:21 SARS-CoV-2 Rap RNA(RT-PCR) NEGATIVE (NEGATIVE) 09/25/20 09:21 Impressions: Foot X-Ray 09/24/20 16:31 IMPRESSION: Calcaneal spur. Degenerative joint changes in the 1st interphalangeal joint. Cannot rule out osteomyelitis in the head of the 1st proximal phalanx or the base of the 1st distal phalanx. Chest X-Ray 09/24/20 21:53 IMPRESSION: 1. No acute pulmonary findings. Stroke Is this a Stroke Patient?: No Acute Heart Failure Is this a Heart Failure Patient?: No
[2020-09-25] MEDS ORDERED: ATORVASTATIN CALCIUM 80 MG TABLET PO SCH (22:00)
== END 2020-09-25 18:27 | disposition home health service (06) | DRG 572 ==
LOC: ER 15:07 → EH 22:44 → 4N 09-25
PROVIDERS: ADMIT Student in an Organized Health Care Education/Training Program; ATTEND Hospitalist
PROC: 0JBQ0ZZ Excision of Right Foot Subcutaneous Tissue and Fascia, Open Approach (ICD-10-PCS; principal; 2020-09-25 11:00)
DX: S90.821A Blister (nonthermal), right foot, initial encounter (principal); X58.XXXA Exposure to other specified factors, initial encounter; Z79.02 Long term (current) use of antithrombotics/antiplatelets; E11.621 Type 2 diabetes mellitus with foot ulcer; L97.519 Non-pressure chronic ulcer of other part of right foot with unspecified severity; E66.3 Overweight; I12.9 Hypertensive chronic kidney disease with stage 1 through stage 4 chronic kidney disease, or unspecified chronic kidney disease; E11.22 Type 2 diabetes mellitus with diabetic chronic kidney disease; N18.30 Chronic kidney disease, stage 3 unspecified; E11.40 Type 2 diabetes mellitus with diabetic neuropathy, unspecified; Z79.4 Long term (current) use of insulin; Z89.411 Acquired absence of right great toe; E78.5 Hyperlipidemia, unspecified; Z20.828 Contact with and (suspected) exposure to other viral communicable diseases; Z95.818 Presence of other cardiac implants and grafts; Z86.73 Personal history of transient ischemic attack (TIA), and cerebral infarction without residual deficits; Z68.29 Body mass index [BMI] 29.0-29.9, adult
CPT/HCPCS: 36415; 71045; 80048; 80053; 80069; 81001; 82043; 82306; 82570; 82728; 82962; 83540; 83550; 83605; 83970; 85025; 85652; 86140; 87040; 87070; 87075; 87077; 87186; 87205; 99285; 0241U; C9803; J0692; J1650; J1815; J2250; J2704; J3010; J3370; J3490; J7060

== ENCOUNTER → 2020-10-09 | Outpatient (CLI) | payer MEDICARE, MEDICAID ==
[2020-10-09 10:37] LABS: ANION GAP 10 (5-19); BLOOD UREA NITROGEN 26 mg/dL (7-20); CALCIUM 9.1 mg/dL (8.4-10.2); CARBON DIOXIDE 28 mmol/L (22-30); CHLORIDE 101 mmol/L (98-107); GLUCOSE 133 mg/dL (75-110); POTASSIUM 4.7 mmol/L (3.6-5.0)
== END ==
LOC: OD 08:48
PROVIDERS: ATTEND Family Medicine Geriatric Medicine
DX: E11.42 Type 2 diabetes mellitus with diabetic polyneuropathy (principal); Z79.899 Other long term (current) drug therapy
CPT/HCPCS: 36415; 80048; 83036